=== PATIENT | male | born 1955 | race Caucasian/White ===

== ENCOUNTER 2023-02-06 10:32 | Inpatient (IN) ==
--- NOTE | 2023-02-06 10:52 | DR.N/VMALE ---
HPI Time Seen Time Seen by Provider: 02/06/23 10:52 Primary Care Physician Primary Care Physician: BERNARDO KUMAR,AUST[place] Complaints Chief Complaint Doctors Comments: 67 y/o male, became suddenly ill 4 nights ago. + frequent nausea/vomiting all night. Has been ill since. + nausea, epigastric pain. Pain is dull, does not radiate. Worse with eating, nothing makes it better. No h/o PUD in the past. Denies any bowel or bladder complaints. Saw his PCP 2 days ago, + IV fluids in the office. + generalized weakness. No fever, URI symptoms. Chief Complaint:: PT STATES THAT HE HAD A SUDDEN ONSET OF SEVERE NAUSEA WITH VOMITING THAT STARTED AROUND 11PM SATURDAY NIGHT. PT STATES THAT HE VOMITTED ALL NIGHT THAT NIGHT AND SATURDAY. N/V IS ALSO ASSOCIATED WITH INTERMITTENT EPIGASTRIC PAIN DESCRIBED PRESSURE, DECREASED APPETITE AND GENERALIZED WEAKNESS. DENIES FEVER. Self Treatment fo Chief Complaint: PT WAS SEEN BY PCP ON 02/04/23 AND WAS GIVEN 1 LITER OF IV FLUIDS AND PRESCRIBED ZOFRAN 4MG PRN WELL CIPRO 500MG PO DAILY X 5 DAYS. COVID-19 Coronavirus risk:travel/contact w/high risk person: No Has patient experienced Coronavirus symptoms: No Reviewed Nurses Notes Reviewed: Yes Source History Provided: Patient Mode of Arrival Mode of Arrival: Ambulatory Timing Onset of Chief Complaint: 02/06/23 PMH PMH Past Medical History: Yes Past Medical History: Coronary Artery Disease, Dyslipidemia, GERD and Hypertension Past Medical History Comment: PROSTATE CANCER Past Surgical History: Yes Surgical History: Angioplasty/Stents and Cholecystectomy Past Surgical History Comment: HERNIA REPAIR Family History History of Family Medical Conditions: Yes Family Medical History: Diabetes Mellitus, Cancer, [place], Coronary Artery Disease and Hypertension Social History Does patient currently use any type of tobacco product: No Have you used tobacco products in the last 12 months: No Type of Tobacco Use: None Does any household member use tobacco: No Alcohol Use: None Do you use any recreational Drugs:: No Lives With: Spouse Lives Where: Home Travel Risk Coronavirus risk:travel/contact w/high risk person: No Has patient experienced Coronavirus symptoms: No Infectious screening In the last 2 months have you had wt loss of >10#?: NO Have you had fever, night sweats or hemotysis?: No Have you traveled outside the country in the last 6 months?: No Isolation: Standard ROS Review of Systems Constitutional: Weakness Eyes: No Symptoms Reported ENTM: No Symptoms Reported Respiratoy: No Symptoms Reported Cardiovascular: No Symptoms Reported Gastrointestinal/Abdominal: See HPI Genitourinary: No Symptoms Reported Neurological: No Symptoms Reported Musculoskeletal: No Symptoms Reported Integumentary: No Symptoms Reported Psychiatric: No Symptoms Reported All Other Systems: Reviewed and Negative PE Vital Signs Vitals: Temperature 97.8 F Pulse Rate 101 Respiratory Rate 19 Blood Pressure 178/89 O2 Sat by Pulse Oximetry 96 General General Appearance: Alert and In No Apparent Distress Eyes Eye exam: PERRL and EOMI ENT ENT Exam: Mucous Membranes Moist Neck Neck Exam: Normal Inspection Respiratory Respiratory Exam: Normal Lung Sounds Bilat; negative Accessory Muscle Use or Respiratory Distress Cardiovascular Cardiovascular Exam: Regular Rate, Normal Rhythm and Normal Heart Sounds Abdominal Exam Abdominal Exam: Normal Bowel Sounds, Soft and Tenderness (epigastric region, slight guarding) Extremities Extremities Exam: Normal Inspection and Full ROM; negative Edema Neurologic Neurological Exam: Alert, Oriented X3 and CN II-XII Intact; negative Motor Sensory Deficit Skin Skin Exam: Warm and Dry COURSE Treatment Treatment: 67 y/o male with epigastric pain, N/V over 4 days. W/u initiated. 1346 - labs c/w degree of dehydration (BUN 69, Cr 2.42; no previous numbers to compare to). Lipase 2,937. Not a drinker, GB out. CT of the abd/pelvis obtained, awaiting official reading. Discussed with his covering MD, Dr Pantoja, will admit. ROR Labs Reviewed Laboratory Results Reviewed?: Yes Result Diagrams: 02/06/23 10:52 02/06/23 10:52 Laboratory: WBC 7.9 X10^3/uL (3.6-10.0) 02/06/23 10:52 RBC 6.49 X10^6/uL (4.7-6.0) H 02/06/23 10:52 Hgb 17.8 g/dL (13.5-18.0) 02/06/23 10:52 Hct 52.7 % (42.0-54.0) 02/06/23 10:52 MCV 81.2 fL (80.0-100.0) 02/06/23 10:52 MCH 27.4 pg (27.0-34.0) 02/06/23 10:52 MCHC 33.8 g/dL (33.0-35.0) 02/06/23 10:52 RDW 15.9 % (11.6-16.5) 02/06/23 10:52 Plt Count 247 X10^3/uL (150.0-450.0) 02/06/23 10:52 MPV 9.4 fL (7.4-11.0) 02/06/23 10:52 Neut % (Auto) 70.6 % (42.0-75.0) 02/06/23 10:52 Lymph % (Auto) 12.2 % (21.0-51.0) L 02/06/23 10:52 Branch % (Auto) 16.5 % (0.0-13.0) H 02/06/23 10:52 Eos % (Auto) 0.5 % (0.9-2.9) L 02/06/23 10:52 Baso % (Auto) 0.2 % (0.2-1.0) 02/06/23 10:52 Neut # (Auto) 5.6 x10^3/uL (2.2-4.8) H 02/06/23 10:52 Lymph # (Auto) 1.0 X10^3/uL (1.3-2.9) L 02/06/23 10:52 Branch # (Auto) 1.3 x10^3/uL (0.3-0.8) H 02/06/23 10:52 Eos # (Auto) 0.0 x10^3/uL (0.0-0.2) 02/06/23 10:52 Baso # (Auto) 0.0 X10^3/uL (0.0-0.1) 02/06/23 10:52 Absolute Nucleated RBC 0.1 /100WBC 02/06/23 10:52 Sodium 132 mmol/L (136-145) L 02/06/23 10:52 Corrected Sodium 136 mmol/L (136-145) 02/06/23 10:52 Potassium 4.2 mmol/L (3.5-5.1) 02/06/23 10:52 Chloride 93 mmol/L (98-107) L 02/06/23 10:52 Carbon Dioxide 31.1 mmol/L (21-32) 02/06/23 10:52 BUN 69 mg/dL (7-18) H 02/06/23 10:52 Creatinine 2.42 mg/dL (0.70-1.30) H 02/06/23 10:52 Est GFR (MDRD) Af Amer 35 (>60) L 02/06/23 10:52 Est GFR (MDRD) Non-Af 29 (>60) L 02/06/23 10:52 Glucose 246 mg/dL (65-99) H 02/06/23 10:52 Calcium 10.1 mg/dL (8.5-10.1) 02/06/23 10:52 Corrected Calcium TNP 02/06/23 10:52 Total Bilirubin 0.90 mg/dL (0.2-1.0) 02/06/23 10:52 AST 24 Units/L (15-37) 02/06/23 10:52 ALT 60 Units/L (12-78) 02/06/23 10:52 Alkaline Phosphatase 71 Units/L (46-116) 02/06/23 10:52 Troponin I High Sens 12.1 ng/L (4.0-60.0) 02/06/23 10:52 Total Protein 8.2 g/dL (6.4-8.2) 02/06/23 10:52 Albumin 4.0 g/dL (3.4-5.0) 02/06/23 10:52 Globulin 4.2 g/dL (2.5-4.5) 02/06/23 10:52 Albumin/Globulin Ratio 1.0 Ratio (1.1-2.1) L 02/06/23 10:52 Lipase 2937 Units/L (73-393) H 02/06/23 10:52 Specimen Type Clean catch urine 02/06/23 12:10 Urine Color Dark yellow (YELLOW) 02/06/23 12:10 Urine Appearance Clear (CLEAR) 02/06/23 12:10 Urine pH 5.0 (5.0 - 8.0) 02/06/23 12:10 Ur Specific [place] 1.025 (1.000-1.030) 02/06/23 12:10 Urine Protein 2+ (NEGATIVE) 02/06/23 12:10 Urine Glucose (UA) 1+ (NEGATIVE) 02/06/23 12:10 Urine Ketones Negative (NEGATIVE) 02/06/23 12:10 Urine Blood 1+ (NEGATIVE) 02/06/23 12:10 Urine Nitrite Negative (NEGATIVE) 02/06/23 12:10 Urine Bilirubin 1+ (NEGATIVE) 02/06/23 12:10 Urine Urobilinogen Normal (NORMAL) 02/06/23 12:10 Ur Leukocyte Esterase Negative (NEGATIVE) 02/06/23 12:10 Urine RBC 0-2 /HPF (0-3) 02/06/23 12:10 Urine WBC 0-2 /HPF (0-5) 02/06/23 12:10 Ur Squamous Epith Cells Rare /HPF (NEGATIVE) 02/06/23 12:10 Urine Bacteria Trace /HPF (NEGATIVE) 02/06/23 12:10 Hyaline Casts Few /LPF (NEGATIVE) 02/06/23 12:10 Urine Mucus Few /HPF (NEGATIVE) 02/06/23 12:10 Ur Culture Indicated? No/not indicated 02/06/23 12:10 Lipase 2,900 Opioid Opioid Risk Tool Age (Agustin box if 16-45): No History of Preadolescent Sexual Abuse: No Total: 0 Total Score Risk Category: Low Risk Copyright: Shaan CAMARGO predicting aberrant behaviors Discharge Plan Diagnosis Discharge Problem: Acute pancreatitis, Volume depletion, Acute kidney injury Discharge Plan Patient Disposition: 09 ADMITTED INPATIENT Condition: Stable Orders to Discharge Patient Discharge Orders: Transfer (Routine); Ordered 02/06/23 Ordered By: Damian Wilcox
[2023-02-06] MEDS ORDERED: PROTONIX INJ 40 MG VIAL IVP ONE (10:53)
[2023-02-06] MEDS ORDERED: NS 1,000 ML IV 1,000 ML IV ONE (10:53)
[2023-02-06] MEDS ORDERED: PROTONIX INJ 40 MG VIAL ONE (10:59)
[2023-02-06] MEDS ORDERED: NS 1,000 ML IV 1,000 ML ONE (10:59)
[2023-02-06 11:02] LABS: BASOPHILS % (AUTO) 0.2 % (0.2-1.0); EOSINOPHILS % (AUTO) 0.5 % (0.9-2.9); HEMATOCRIT 52.7 % (42.0-54.0); HEMOGLOBIN 17.8 g/dL (13.5-18.0); LYMPHOCYTES % (AUTO) 12.2 % (21.0-51.0); MEAN CORPUSCULAR HEMOGLOBIN 27.4 pg (27.0-34.0); MEAN CORPUSCULAR HGB CONC 33.8 g/dL (33.0-35.0); MEAN CORPUSCULAR VOLUME 81.2 fL (80.0-100.0); MEAN PLATELET VOLUME 9.4 fL (7.4-11.0); MONOCYTES # (AUTO) 1.3 x10^3/uL (0.3-0.8); MONOCYTES % (AUTO) 16.5 % (0.0-13.0); NEUTROPHILS # (AUTO) 5.6 x10^3/uL (2.2-4.8); NEUTROPHILS % (AUTO) 70.6 % (42.0-75.0); PLATELET COUNT 247 X10^3/uL (150.0-450.0); RED BLOOD COUNT 6.49 X10^6/uL (4.7-6.0); RED CELL DISTRIBUTION WIDTH 15.9 % (11.6-16.5); WHITE BLOOD COUNT 7.9 X10^3/uL (3.6-10.0)
[2023-02-06 11:13] LABS: ALANINE AMINOTRANSFERASE 60 Units/L (12-78); ALKALINE PHOSPHATASE 71 Units/L (46-116); ASPARTATE AMINO TRANSFERASE 24 Units/L (15-37); BLOOD UREA NITROGEN 69 mg/dL (7-18); CALCIUM 10.1 mg/dL (8.5-10.1); CARBON DIOXIDE 31.1 mmol/L (21-32); CHLORIDE 93 mmol/L (98-107); COR NA(FOR HYPERGLY) 136 mmol/L (136-145); CREATININE 2.42 mg/dL (0.70-1.30); GLUCOSE 246 mg/dL (65-99); POTASSIUM 4.2 mmol/L (3.5-5.1); SODIUM 132 mmol/L (136-145); TOTAL PROTEIN 8.2 g/dL (6.4-8.2); eGFR NON BLACK RACES 29 (>60)
[2023-02-06 11:24] LABS: LIPASE 2937 Units/L (73-393)
[2023-02-06 12:21] LABS: BILIRUBIN,URINE 1+ (NEGATIVE); BLOOD/HEMOGLOBIN,URINE 1+ (NEGATIVE); GLUCOSE, URINE 1+ (NEGATIVE); KETONES,URINE NEGATIVE (NEGATIVE); LEUKOCYTE ESTERASE ,URINE NEGATIVE (NEGATIVE); NITRITES,URINE NEGATIVE (NEGATIVE); PROTEIN,URINE 2+ (NEGATIVE); UROBILINOGEN,URINE NORMAL (NORMAL)
[2023-02-06 12:46] LABS: APPEARANCE,URINE CLEAR (CLEAR); COLOR,URINE DARK YELLOW (YELLOW)
[2023-02-06 12:47] LABS: BACTERIA,URINE TRACE /HPF (NEGATIVE); HYALINE CASTS, URINE FEW /LPF (NEGATIVE); RBC,URINE 0-2 /HPF (0-3); SQUAMOUS EPITHELIAL CELL,UR RARE /HPF (NEGATIVE)
--- NOTE | 2023-02-06 15:17 | CT ---
HISTORYABD PAIN, N/VSTUDYABDOMEN/PELVIS W/O CONCOMPARISONTECHNIQUEMultiple axial images of the abdomen and pelvis were obtained from the lung bases to the pubic symphysis after the administration of IV contrast. Dose reduction techniques including Automated Exposure Control (AEC) and adjustment of mA and kV were utilized.FINDINGSThe lung bases are clear without effusion. The heart size is normal. There is atherosclerosis in the LAD. There is diffuse fatty infiltration of the liver. The gallbladder has been removed. The pancreas is somewhat atrophic. The spleen and adrenal glands are normal. There is a 7 mm nonobstructing stone in the lower pole of the right kidney. There is air-fluid level in the stomach but the stomach is not abnormally dilated. The small bowel loops are abnormally dilated with air-fluid levels and diameters up to 4.8 cm in diameter. The distal small bowel is collapsed. The transition point is not defined. The appendix is normal. There is diffuse diverticulosis coli without diverticulitis. Urinary bladder wall is mildly thickened meter is prostate measures 4.3 cm in diameter. There is no worrisome bone marrow lesion.IMPRESSION1. Mid small-bowel obstruction. Transition point not identified. 2. Diverticulosis coli without diverticulitis. 3. 7 mm nonobstructing right renal stone. 4. Fatty liver.Electronically signed by: Hood Garay (February 06, 2023 15:15:47)
[2023-02-06] MEDS: D5 1/2 NS 1,000 ML 1,000 ML IV SCH ×3 (15:47→23:44)
[2023-02-06] MEDS: ZOFRAN INJ 4 MG VIAL IVP PRN (15:48)
[2023-02-06] MEDS: DILAUDID INJ IVP PRN (15:48)
[2023-02-06] MEDS ORDERED: NovoLIN R (or HumuLIN R) SC PRN (16:30)
[2023-02-06] MEDS: LOVENOX INJ 30 MG SYR SC SCH (21:35)
[2023-02-06] MEDS: LOPRESSOR TAB 25 MG PO SCH (21:35)
[2023-02-07] MEDS: D5 1/2 NS 1,000 ML 1,000 ML IV SCH ×2 (04:56→08:11)
[2023-02-07] MEDS: DILAUDID INJ IVP PRN ×3 (04:57→21:03)
[2023-02-07 06:03] LABS: BASOPHILS % (AUTO) 0.5 % (0.2-1.0); EOSINOPHILS # (AUTO) 0.1 x10^3/uL (0.0-0.2); EOSINOPHILS % (AUTO) 1.5 % (0.9-2.9); HEMATOCRIT 43.4 % (42.0-54.0); LYMPHOCYTES % (AUTO) 17.5 % (21.0-51.0); MEAN CORPUSCULAR HEMOGLOBIN 27.5 pg (27.0-34.0); MEAN CORPUSCULAR HGB CONC 34.1 g/dL (33.0-35.0); MEAN CORPUSCULAR VOLUME 80.6 fL (80.0-100.0); MEAN PLATELET VOLUME 9.7 fL (7.4-11.0); MONOCYTES # (AUTO) 1.1 x10^3/uL (0.3-0.8); MONOCYTES % (AUTO) 19.2 % (0.0-13.0); NEUTROPHILS # (AUTO) 3.6 x10^3/uL (2.2-4.8); NEUTROPHILS % (AUTO) 61.3 % (42.0-75.0); PLATELET COUNT 192 X10^3/uL (150.0-450.0); RED BLOOD COUNT 5.39 X10^6/uL (4.7-6.0); RED CELL DISTRIBUTION WIDTH 15.6 % (11.6-16.5); WHITE BLOOD COUNT 5.9 X10^3/uL (3.6-10.0)
[2023-02-07 06:14] LABS: HEMOGLOBIN 14.8 g/dL (13.5-18.0)
[2023-02-07] MEDS: AMARYL TAB 4 MG PO SCH (06:23)
[2023-02-07 06:25] LABS: CALCIUM 8.5 mg/dL (8.5-10.1); CARBON DIOXIDE 28.4 mmol/L (21-32); COR CA(FOR HYPOALB) 9.3 mg/dL (8.5-10.1); CREATININE 1.59 mg/dL (0.70-1.30); POTASSIUM 3.6 mmol/L (3.5-5.1); TOTAL PROTEIN 6.3 g/dL (6.4-8.2)
[2023-02-07] MEDS ORDERED: PLAVIX PO SCH (09:00)
[2023-02-07] MEDS: CELEXA PO SCH (09:27)
[2023-02-07] MEDS: HYZAAR 50/12.5 MG PO SCH (09:27)
[2023-02-07] MEDS: LOPRESSOR TAB 25 MG PO SCH ×2 (09:27→23:22)
[2023-02-07] MEDS: CRESTOR TAB 10 MG PO SCH (09:28)
[2023-02-07] MEDS: NS 1,000 ML IV 1,000 ML with SODIUM BICARBONATE 8.4% INJ ADULT 50 ML IV SCH ×6 (12:24→22:02)
--- NOTE | 2023-02-07 13:36 | RAD ---
HISTORYABD PAIN, SBO CAD/STENTS, HTN, PROSTATE CANCER, GB, HERNIASTUDYKUBCOMPARISONCT performed the previous dayFINDINGSEvaluation of the abdomen demonstrates persistent moderate to severe small bowel distension. No pathological soft tissue mass or calcification can be observed. The bony structures are grossly intact. Cholecystectomy clips noted.IMPRESSIONPersistent moderate to severe small bowel obstruction.Electronically signed by: ALESSIA SORIA (February 07, 2023 13:35:20)
[2023-02-07] MEDS: PROTONIX INJ 40 MG VIAL IVP SCH (14:42)
[2023-02-07] MEDS ORDERED: CHLORASEPTIC SPRAY MT PRN (16:53)
--- NOTE | 2023-02-07 18:25 | RAD ---
EXAM: ABDOMEN X-RAY (or KUB)HISTORY: Nasogastric tube verification status post placement.TECHNIQUE: Supine viewCOMPARISON: None.FINDINGS:Nasogastric tube is noted with the distal tip (pointing laterally) within the proximal to middle lateral body of the stomach.There are up to 6.1 cm dilated air-filled large bowel loops in the abdomen suspicious for high-grade bowel obstruction (versus ileus).There is no gross organomegaly, free intraperitoneal air, or suspicious calcifications seen. The visualized bony structures are within normal limits.IMPRESSION:1. Nasogastric tube is noted with the distal tip (pointing laterally) within the proximal to middle lateral body of the stomach.2. Up to 6.1 cm dilated air-filled large bowel loops in the abdomen suspicious for high-grade bowel obstruction (versus ileus).Electronically signed by: Concepción Jama (February 07, 2023 18:24:11)
[2023-02-07] MEDS ORDERED: D50W ABBOJECT SYR IV ONE (20:47)
[2023-02-07] MEDS ORDERED: D50W ABBOJECT SYR ONE (20:53)
[2023-02-07] MEDS: ZOFRAN INJ 4 MG VIAL IVP PRN (21:03)
[2023-02-07] MEDS: LOVENOX INJ 30 MG SYR SC SCH (21:03)
--- NOTE | 2023-02-07 22:30 | RAD ---
HISTORYNG TUBE PLACEMENT ADVANCED PER DR. FISHMAN Relevant Clinical InformationSTUDYKUBCOMPARISONKUB February 07, 2023 4:57 p.m.FINDINGSAn enteric tube is noted with tip overlying the expected location of the stomach. There are persistently distended bowel loops throughout the abdomen.IMPRESSIONEnteric tube tip overlies expected location of the stomach.Distended small bowel loops throughout the abdomen.Electronically signed by: Cale Doe (February 07, 2023 22:29:01)
[2023-02-08] MEDS ORDERED: NS 1,000 ML IV 1,000 ML IV ONE (00:11)
[2023-02-08] MEDS ORDERED: NS 1,000 ML IV 1,000 ML ONE (00:20)
[2023-02-08] MEDS: DILAUDID INJ IVP PRN ×9 (01:57→23:43)
[2023-02-08] MEDS ORDERED: D50W ABBOJECT SYR IV ONE ×2 (02:11→09:41)
[2023-02-08] MEDS: NS 1,000 ML IV 1,000 ML with SODIUM BICARBONATE 8.4% INJ ADULT 50 ML IV SCH ×4 (02:16→10:40)
[2023-02-08] MEDS ORDERED: NS 1,000 ML IV 0 ML ONE (04:40)
--- NOTE | 2023-02-08 05:44 | DR.CONSULT ---
CONSULT Consultation for Day of: Date: 02/07/23 Chief Complaint Chief Complaint: 67 yo male presented with abdominal pain. CT on admission and AAS today consistent with small bowel obstruction. Lipase elevated which can be seen with small bowel obstruction. Allergies Allergies Allergy/AdvReac Type Severity Reaction Status Date / Time aspirin Allergy Verified 02/06/23 10:43 Sulfa (Sulfonamide Allergy Verified 02/06/23 10:43 Antibiotics) [SULFA] History of Present Illness History of Present Illness: 67 yo male with onset 4 days prior to admission with abdominal pain with nausea and vomiting . Not passing flatus of bowel movements. CT on admission consistent with small bowel obstruction and not improved on abdominal series today. Has had laparoscopic cholecystectomy in the recent past and inguinal hernia repair in the past. Patient with significant dehydration on admission. Patietn has history of diabetes . Past Medical History Past Medical History: Coronary Artery Disease ( Hx of cornary stents in the past for chest pain, no history of [place] , on Plavix > 1 year), Dyslipidemia, GERD and Hypertension Additional Medical History: hx of prostate cancer treated with XRT and Lupron Past Surgical History Surgical History: Angioplasty/Stents and Cholecystectomy Family History Family Medical History: Diabetes Mellitus, Cancer, [place], Coronary Artery Disease and Hypertension Social History Does patient currently use any type of tobacco product: No Have you used tobacco products in the last 12 months: No Type of Tobacco Use: None Does any household member use tobacco: No Alcohol Use: None Drug Use: None Medications Home Medications: aspirin Allergy (Verified 02/06/23 10:43) Sulfa (Sulfonamide Antibiotics) [SULFA] Allergy (Verified 02/06/23 10:43) CONTINUE taking the following medications ciprofloxacin HCl 500 mg tablet 500 mg PO QDAY 02/06/23 [History] citalopram 20 mg tablet 20 mg PO QDAY 02/06/23 [History] clopidogrel 75 mg tablet 75 mg PO QDAY 02/06/23 [History] glimepiride 1 mg tablet 1 mg PO QDAY 02/06/23 [History] losartan 50 mg-hydrochlorothiazide 12.5 mg tablet 1 tab PO QDAY 02/06/23 [History] metformin 1,000 mg tablet 1,000 mg PO BID 02/06/23 [History] metoprolol tartrate 25 mg tablet 12.5 mg PO BID 02/06/23 [History] omeprazole 20 mg capsule,delayed release 20 mg PO DAILY 02/06/23 [History] ondansetron 4 mg disintegrating tablet 4 mg PO Q8H PRN 02/06/23 [History] rosuvastatin 5 mg tablet 5 mg PO QDAY 02/06/23 [History] Review of Systems Constitutional: See HPI Eyes: No Symptoms Reported ENT: No Symptoms Reported Respiratory: No Symptoms Reported Cardiovascular: No Symptoms Reported Gastrointestinal: See HPI Genitourinary: No Symptoms Reported Musculoskeletal: No Symptoms Reported Skin: No Symptoms Reported Neurological: No Symptoms Reported Physical Exam Vital Signs: Temperature 97.9 F Pulse Rate [Left] 74 Pulse Rate 92 Respiratory Rate 18 Blood Pressure [Left Arm] 140/73 Blood Pressure 153/98 O2 Sat by Pulse Oximetry 95 Oriented: Normal, Time, Person and Place Eyes: Normal Ear: Normal Nose: Normal Throat: Normal Respiratory: Clear Throughout Cardiovascular: Normal : Normal Auscultation: Bowel Sounds: Absent Palpation: Other (distended) Tenderness: Other (mildly tender throughout.) Skin: Normal Musculoskeletal: Normal Psychiatric: Normal Mood Description: Calm Affect: Normal Speech Pattern: Clear Plan (1) Small bowel obstruction: Status: Acute Plan: Over 4 days of small bowel obstruction. Will place NG tube . If not improved soon will need laparoscopy/laparotomy to relieve the obstruction. Doubt pancreatitis as lipase is often elevated with small bowel obstruction. Plus, on intitial ER evaluation at time lipase was elevated the CT shows that the gallbladder has been removed and the pancreas was atrophic and there was no evidence of pancreatic inflammation which you would see with pancreatitis . Check KUB in AM. (2) Volume depletion: Status: Acute Narrative Support Text: BUN/Creatinine improving with hydration. Will bolus on liter of IV saline and recheck BMP in AM.
[2023-02-08] MEDS: ZOFRAN INJ 4 MG VIAL IVP PRN ×2 (06:01→19:41)
[2023-02-08] MEDS: AMARYL TAB 4 MG PO SCH (06:09)
[2023-02-08 06:13] LABS: BASOPHILS % (AUTO) 0.4 % (0.2-1.0); EOSINOPHILS # (AUTO) 0.1 x10^3/uL (0.0-0.2); EOSINOPHILS % (AUTO) 1.4 % (0.9-2.9); HEMATOCRIT 40.2 % (42.0-54.0); HEMOGLOBIN 13.4 g/dL (13.5-18.0); LYMPHOCYTES # (AUTO) 0.8 X10^3/uL (1.3-2.9); LYMPHOCYTES % (AUTO) 14.8 % (21.0-51.0); MEAN CORPUSCULAR HGB CONC 33.3 g/dL (33.0-35.0); MEAN PLATELET VOLUME 9.2 fL (7.4-11.0); MONOCYTES # (AUTO) 0.9 x10^3/uL (0.3-0.8); MONOCYTES % (AUTO) 16.9 % (0.0-13.0); NEUTROPHILS # (AUTO) 3.5 x10^3/uL (2.2-4.8); NEUTROPHILS % (AUTO) 66.5 % (42.0-75.0); PLATELET COUNT 156 X10^3/uL (150.0-450.0); RED BLOOD COUNT 4.97 X10^6/uL (4.7-6.0); RED CELL DISTRIBUTION WIDTH 15.1 % (11.6-16.5); WHITE BLOOD COUNT 5.3 X10^3/uL (3.6-10.0)
[2023-02-08 06:24] LABS: ALANINE AMINOTRANSFERASE 47 Units/L (12-78); ALBUMIN 2.7 g/dL (3.4-5.0); ALKALINE PHOSPHATASE 48 Units/L (46-116); ASPARTATE AMINO TRANSFERASE 23 Units/L (15-37); BLOOD UREA NITROGEN 27 mg/dL (7-18); CALCIUM 7.9 mg/dL (8.5-10.1); CARBON DIOXIDE 33.9 mmol/L (21-32); CHLORIDE 101 mmol/L (98-107); COR CA(FOR HYPOALB) 8.9 mg/dL (8.5-10.1); CREATININE 1.26 mg/dL (0.70-1.30); GLUCOSE 78 mg/dL (65-99); POTASSIUM 3.5 mmol/L (3.5-5.1); SODIUM 137 mmol/L (136-145); TOTAL PROTEIN 5.7 g/dL (6.4-8.2); eGFR NON BLACK RACES > 60 (>60)
[2023-02-08 06:32] LABS: AMYLASE 345 Units/L (25-115); LIPASE 3080 Units/L (73-393)
--- NOTE | 2023-02-08 07:43 | RAD ---
HISTORYSmall bowel obstructionSTUDYKUBCOMPARISONCT abdomen pelvis 02/06/2023FINDINGSThere are multiple markedly dilated small bowel loops within the mid abdomen not significantly changed from prior CT. Gas is present distally within the colon. Findings are consistent with partial small bowel obstruction unchanged. No abnormal masses or abnormal calcifications are identified. Regional skeleton is osteopenic but intact.IMPRESSIONFindings compatible with partial small bowel obstruction, unchangedElectronically signed by: JUAN LUIS DE LA O (February 08, 2023 07:41:50)
[2023-02-08] MEDS: D5 NS 1,000 ML IV 1,000 ML IV SCH ×2 (10:40→21:35)
[2023-02-08] MEDS: HYZAAR 50/12.5 MG PO SCH (10:45)
[2023-02-08] MEDS: LOPRESSOR TAB 25 MG PO SCH ×2 (10:45→21:23)
[2023-02-08] MEDS: CRESTOR TAB 10 MG PO SCH (10:45)
[2023-02-08] MEDS: CELEXA PO SCH (10:45)
[2023-02-08] MEDS: PROTONIX INJ 40 MG VIAL IVP SCH (10:46)
[2023-02-08] MEDS ORDERED: POTASSIUM CHL 60 MEQ/NS 0.45% 500 ML IV PRN (11:02)
[2023-02-08] MEDS ORDERED: POTASSIUM CHLORIDE LIQ 20 MEQ UDC PO PRN (11:02)
[2023-02-08] MEDS ORDERED: K-DUR TAB 20 MEQ PO PRN (11:02)
[2023-02-08] MEDS ORDERED: KLOR-CON PO PRN (11:02)
[2023-02-08] MEDS ORDERED: POTASSIUM CHL 40 MEQ/NS 0.45% 500 ML IV PRN (11:02)
[2023-02-08] MEDS ORDERED: MICRO K EXTEN CAP 10 MEQ PO PRN (11:02)
[2023-02-08] MEDS: K-RIDER 10 MEQ/NS 100 ML 10 MEQ/100 ML BAG IV PRN ×2 (11:16→12:20)
--- NOTE | 2023-02-08 13:07 | EKG ---
Test Reason : pre-op....pt in room 208 Blood Pressure : */* mmHG Vent. Rate : 67 BPM Atrial Rate : 67 BPM P-R Int : 152 ms QRS Dur : 80 ms QT Int : 410 ms P-R-T Axes : 42 -2 18 degrees QTc Int : 433 ms Normal sinus rhythm Cannot rule out Anterior infarct , age undetermined Abnormal ECG No previous ECGs available Confirmed by Marcus Valiente ([id number]) on 02/09/2023 4:56:47 PM Referred By: Confirmed By: Marcus Valiente
[2023-02-08] MEDS ORDERED: VERSED ONE (13:32)
[2023-02-08] MEDS ORDERED: DIPRIVAN VIAL 20 ML ONE (13:33)
[2023-02-08] MEDS ORDERED: QUELICIN (OR ANECTINE) ONE (13:33)
[2023-02-08] MEDS ORDERED: ZEMURON 100 MG VIAL ONE (13:33)
[2023-02-08] MEDS ORDERED: FENTANYL VIAL INJ 250 mcg ONE (13:33)
[2023-02-08] MEDS ORDERED: LR 1,000 ML IV 1,000 ML IV ONE (13:33)
[2023-02-08] MEDS ORDERED: ANCEF VIAL 1 GRAM ONE (13:34)
[2023-02-08] MEDS ORDERED: NS 100 ML IV 100 ML ONE (13:38)
[2023-02-08] MEDS ORDERED: SUPRANE ONE (13:45)
[2023-02-08] MEDS ORDERED: BRIDION ONE (14:36)
[2023-02-08] MEDS ORDERED: NAROPIN 0.75% EPI ONE (14:41)
[2023-02-08] MEDS ORDERED: DECADRON INJ ONE (14:45)
--- NOTE | 2023-02-08 14:52 | OR.IMMED ---
IMMEDIATE POST-OP NOTE Immediate Post-Op Note Pre-Op Diagnosis: small bowel obstruction Post-Op Diagnosis: same secondary to adhesions Procedure: laparotomy and lysis of adhesions, appendectomy Description of Procedure: see operative summary Surgeon/Cook Dinner: Topher Findings: SBO with adhesions distal small bowel Specimens Removed: appendix Estimated Blood Loss: < 50cc Complications: none Progress Notes: to floor, Continue eddy and NG tube Final Diagnosis: as above
[2023-02-08] MEDS ORDERED: BARHEMSYS INJ IVP PRN (15:14)
[2023-02-08] MEDS ORDERED: BENADRYL INJ 50 MG VIAL IVP PRN (15:14)
[2023-02-08] MEDS ORDERED: ZOFRAN INJ 4 MG VIAL IVP PRN (15:14)
[2023-02-08] MEDS ORDERED: REGLAN INJ 10 MG VIAL IVP PRN (15:14)
[2023-02-08] MEDS ORDERED: DILAUDID INJ ONE (15:31)
--- NOTE | 2023-02-08 22:40 | DR.H&P ---
H&P - History & Physical for Day of: H&P Date: 02/06/23 - Chief Complaint Chief Complaint: NAUSEA, VOMITING, EPIGASTRIC PAIN - History of Present Illness History of Present Illness: IS A 67 YEAR OLD PATIENT OF OURS. HE PRESENTED TO THE ER WITH COMPLAINTS OF FREQUENT NAUSEA, VOMITING, AND EPIGASTRIC PAIN. HE DESCRIBES PAIN DULL AND INTERMITTENT. PAIN DOES NOT RADIATE. IT IS WORSE WITH EATING AND NOTHING MAKES IT BETTER. HE RATES PAIN A 6/10. HE REPORTS THAT PAIN STARTED AT APPROXIMATELY 11PM ON SATURDAY NIGHT. ASSOCIATED SYMPTOMS INCLUDE DECREASED APPETITE AND GENERALIZED WEAKNESS. HE WAS SEEN IN OUR OFFICE ON 02/04/23 AND WAS GIVEN A NORMAL SALINE BOLUS AND WAS PRESCRIBED ZOFRAN PRN AND CIPRO 500MG BID X 5 DAYS. HE HAS A PMH OF CAD, DYSLIPIDEMIA, GERD, HTN, PROSTATE CANCER, HERNIA REPAIR, CHOLECYSTECTOMY, AND CARDIAC STENTS. ON ARRIVAL TO THE ER, HIS VITALS WERE: 97.8-119-18-97%-112/72. LABS WERE OBTAINED. WBC 7.9, RBC 6.49, HGB 17.8, HCT 52.7, PLT COUNT 247, SODIUM 132, POTASSIUM 4.2, CHLORIDE 93, BUN 69, CREATININE 2.42, GFR 29, GLUCOSE 246, TOTAL BILI 0.90, AST 24, ALT 60, ALK PHOS 71, TROPONIN 12.1, TOTAL PROTEIN 8.2, ALBUMIN 4.0, LIPASE 2937. A URINALYSIS WAS OBTAINED AND REVEALED: WBC 0-2, RBC 0-2, LEUKOCYTES NEGATIVE, BACTERIA TRACE, BLOOD 1+, PROTEIN 2+. AN ABDOMEN/PELVIS CT WITHOUT CONTRAST WAS OBTAINED AND REVEALED: 1. Mid small-bowel obstruction. Transition point not identified. 2. Diverticulosis coli without diverticulitis. 3. 7 mm nonobstructing right renal stone. 4. Fatty liver. IN THE ER, HE WAS GIVEN A NORMAL SALINE BOLUS, PROTONIX 40MG IV X 1. HE WAS ADMITTED TO THE HOSPITAL OBSERVATION STATUS FOR FURTHER EVALUATION AND TREATMENT OF SMALL BOWEL OBSTRUCTION, ACUTE PANCREATITIS, ACUTE RENAL INJURY, DEHYDRATION, HYPONATREMIA. HE WAS STARTED ON D51/2 NORMAL SALINE AT 150 ML/HR, DILAUDID 1MG IV Q4H PRN, LOVENOX 30MG SC HS, OTBS ACHS, HUMULIN R SLIDING SCALE, ZOFRAN 4MG IV Q6H PRN, PROTONIX 40MG IV DAILY. WE WILL RESUME HIS HOME MEDICATIONS OF CELEXA, AMARYL, HYZAAR, GLUCOPHAGE, LOPRESSOR, AND CRESTOR. WE WILL CONSULT , GENERAL SURGEON. OTHERWISE, WE PLAN TO FOLLOW-UP WITH AM LABS AND CONTINUE TO MONITOR. TIME SPENT ON CLINICAL ASSESSMENT, REVIEWING LABS AND IMAGING, DECISION MAKING, AND DOCUMENTATION GREATER THAN 75 MINUTES. - Past Medical History Past Medical History: Coronary Artery Disease (Hx of cornary stents in the past for chest pain, no history of [place] , on Plavix > 1 year), Hypertension, Dyslipidemia, GERD Additional Medical History: hx of prostate cancer treated with XRT and Lupron - Past Surgical History Surgical History: Angioplasty/Stents, Cholecystectomy - Family History Family Medical History: Diabetes Mellitus, Cancer, [place], Coronary Artery Disease, Hypertension - Social History Does patient currently use any type of tobacco product: No Have you used tobacco products in the last 12 months: No Type of Tobacco Use: None Does any household member use tobacco: No Alcohol Use: None Drug Use: None - Medications Home Medications: aspirin Allergy (Verified 02/06/23 10:43) Sulfa (Sulfonamide Antibiotics) [SULFA] Allergy (Verified 02/06/23 10:43) CONTINUE taking the following medications ciprofloxacin HCl 500 mg tablet 500 mg PO QDAY 02/06/23 [History] citalopram 20 mg tablet 20 mg PO QDAY 02/06/23 [History] clopidogrel 75 mg tablet 75 mg PO QDAY 02/06/23 [History] glimepiride 1 mg tablet 1 mg PO QDAY 02/06/23 [History] losartan 50 mg-hydrochlorothiazide 12.5 mg tablet 1 tab PO QDAY 02/06/23 [History] metformin 1,000 mg tablet 1,000 mg PO BID 02/06/23 [History] metoprolol tartrate 25 mg tablet 12.5 mg PO BID 02/06/23 [History] omeprazole 20 mg capsule,delayed release 20 mg PO DAILY 02/06/23 [History] ondansetron 4 mg disintegrating tablet 4 mg PO Q8H PRN 02/06/23 [History] rosuvastatin 5 mg tablet 5 mg PO QDAY 02/06/23 [History] - Review of Systems Constitutional: Weakness Eyes: No Symptoms Reported ENT: No Symptoms Reported Respiratory: No Symptoms Reported Cardiovascular: No Symptoms Reported Gastrointestinal: See HPI, Nausea, Vomiting, Abdominal Pain Genitourinary: No Symptoms Reported Musculoskeletal: No Symptoms Reported Skin: No Symptoms Reported Neurological: Weakness - Physical Exam Vital Signs: Temperature 98.5 F Pulse Rate [Left] 77 Pulse Rate 79 Respiratory Rate 18 Blood Pressure [Left Arm] 152/78 Blood Pressure 147/72 O2 Sat by Pulse Oximetry 97 Oriented: Normal, Time, Person, Place Eyes: Normal Ear: Normal Nose: Normal Throat: Normal Respiratory: Diminished Throughout Cardiovascular: Tachycardia : Normal Auscultation: Bowel Sounds: Normal Palpation: Normal Tenderness: Epigastric Skin: Decreased Turgur Musculoskeletal: Normal Psychiatric: Normal Mood Description: Calm Affect: Normal Speech Pattern: Clear - Assessment/Plan (1) Small bowel obstruction Status: Acute Plan: ADMIT, SURGICAL CONSULT, D51/2 NORMAL SALINE AT 150 ML/HR, DILAUDID 1MG IV Q4H PRN, LOVENOX 30MG SC HS, OTBS ACHS, HUMULIN R SLIDING SCALE, ZOFRAN 4MG IV Q6H PRN, PROTONIX 40MG IV DAILY. RESUME HOME MEDS (2) Acute pancreatitis Qualifiers: Pancreatitis type: unspecified pancreatitis type Acute pancreatitis complication: unspecified Qualified Code(s): K85.90 - Acute pancreatitis without necrosis or infection, unspecified Status: Acute (3) Acute kidney injury Status: Acute (4) Dehydration Status: Acute (5) Hyponatremia Status: Acute (6) HTN (hypertension) Qualifiers: Hypertension type: primary hypertension Qualified Code(s): I10 - Essential (primary) hypertension Status: Chronic (7) DM II (diabetes mellitus, type II), controlled Qualifiers: Diabetes mellitus ocean transportation intermediary insulin use: with halfway use Diabetes mellitus complication status: with hyperglycemia Qualified Code(s): E11.65 - Type 2 diabetes mellitus with hyperglycemia; Z79.4 - terminal operations supervisor (current) use of insulin Status: Chronic (8) GERD (gastroesophageal reflux disease) Qualifiers: Esophagitis presence: esophagitis presence not specified Qualified Code(s): K21.9 - Gastro-esophageal reflux disease without esophagitis Status: Chronic (9) CAD (coronary artery disease) Qualifiers: Coronary Disease-Associated Artery/Lesion type: [place] artery [place] vs. transplanted heart: [place] heart Status: Chronic (10) Dyslipidemia Status: Chronic - Allergies Allergies/Adverse Reactions: Allergies Allergy/AdvReac Type Severity Reaction Status Date / Time aspirin Allergy Verified 02/06/23 10:43 Sulfa (Sulfonamide Allergy Verified 02/06/23 10:43 Antibiotics) [SULFA]
[2023-02-09] MEDS: ZOFRAN INJ 4 MG VIAL IVP PRN (02:46)
[2023-02-09] MEDS: DILAUDID INJ IVP PRN ×8 (02:47→23:14)
--- NOTE | 2023-02-09 05:17 | RAD ---
HISTORYPANCREATITIS, ABD PAIN, NG TUBE ; HX: CAD, HTN, PROSTATE CANCER SX: STENTS, [id number]/05/2023 FINDINGSEvaluation of the abdomen demonstrates a nonobstructive bowel gas pattern. There are skin danette in the midline from recent abdominal surgery. Nasogastric tube present within the distal stomach.. No pathological soft tissue mass or calcification can be observed. The bony structures are grossly intact.IMPRESSIONNG tube tip in distal stomach.Electronically signed by: Leander Nascimento (February 09, 2023 05:15:42)
[2023-02-09 05:59] LABS: BASOPHILS % (AUTO) 0.1 % (0.2-1.0); EOSINOPHILS % (AUTO) 0.1 % (0.9-2.9); HEMATOCRIT 43.6 % (42.0-54.0); HEMOGLOBIN 14.6 g/dL (13.5-18.0); LYMPHOCYTES # (AUTO) 0.6 X10^3/uL (1.3-2.9); LYMPHOCYTES % (AUTO) 8.6 % (21.0-51.0); MEAN CORPUSCULAR HEMOGLOBIN 27.1 pg (27.0-34.0); MEAN CORPUSCULAR HGB CONC 33.5 g/dL (33.0-35.0); MEAN CORPUSCULAR VOLUME 80.9 fL (80.0-100.0); MEAN PLATELET VOLUME 9.3 fL (7.4-11.0); MONOCYTES % (AUTO) 14.1 % (0.0-13.0); NEUTROPHILS # (AUTO) 5.3 x10^3/uL (2.2-4.8); NEUTROPHILS % (AUTO) 77.1 % (42.0-75.0); PLATELET COUNT 173 X10^3/uL (150.0-450.0); RED BLOOD COUNT 5.39 X10^6/uL (4.7-6.0); RED CELL DISTRIBUTION WIDTH 15.1 % (11.6-16.5); WHITE BLOOD COUNT 6.8 X10^3/uL (3.6-10.0)
[2023-02-09 06:02] LABS: ALANINE AMINOTRANSFERASE 39 Units/L (12-78); ALBUMIN 2.6 g/dL (3.4-5.0); ALKALINE PHOSPHATASE 51 Units/L (46-116); ASPARTATE AMINO TRANSFERASE 21 Units/L (15-37); BLOOD UREA NITROGEN 21 mg/dL (7-18); CALCIUM 8.1 mg/dL (8.5-10.1); CHLORIDE 102 mmol/L (98-107); COR CA(FOR HYPOALB) 9.2 mg/dL (8.5-10.1); COR NA(FOR HYPERGLY) 140 mmol/L (136-145); CREATININE 1.42 mg/dL (0.70-1.30); GLUCOSE 197 mg/dL (65-99); SODIUM 138 mmol/L (136-145); eGFR NON BLACK RACES 53 (>60)
[2023-02-09] MEDS: D5 NS 1,000 ML IV 1,000 ML IV SCH ×3 (06:02→20:10)
[2023-02-09] MEDS: PROTONIX INJ 40 MG VIAL IVP SCH (08:46)
[2023-02-09] MEDS: CRESTOR TAB 10 MG PO SCH (08:50)
[2023-02-09] MEDS: HYZAAR 50/12.5 MG PO SCH ×2 (08:51→12:42)
[2023-02-09] MEDS: LOPRESSOR TAB 25 MG PO SCH ×3 (08:51→20:10)
--- NOTE | 2023-02-09 11:11 | PCM.PROG ---
Progress Note Progress Note for Day of Date of Exam: 02/09/23 Subjective Subjective: Patient seen at bedside, no events overnight. He was admitted for abdominal pain and found to have partial SBO. His sx were not improving, surgery consulted. He underwent lysis of adhesions and appendectomy yesterday. He currently has NGT placed. He reports feeling better. His post-op pain is controlled with pain medicines. He has not had a BM or passing gas. Labs/imaging reviewed KUB: non-obstructive gas pattern, NGT in distal stomach Plan: Follow surgery recommendations, continue NGT. Continue hydration and pain control. Replace electrolytes as needed. Continue insulin. Keep NPO status. Monitor AM labs/imaging. Past Medical Family Social History Allergies: Allergies aspirin Allergy (Verified 02/06/23 10:43) Sulfa (Sulfonamide Antibiotics) [SULFA] Allergy (Verified 02/06/23 10:43) Vital Signs and I&O's Vital Signs: Temperature 98.2 F Pulse Rate [Left] 65 Pulse Rate 79 Respiratory Rate 18 Blood Pressure [Left Arm] 176/80 Blood Pressure 147/72 O2 Sat by Pulse Oximetry 98 Intake and Output: Intake & Output 02/06/23 02/07/23 02/08/23 02/09/23 23:59 23:59 23:59 23:59 Intake Total 1913 2978 / 2978 5609 / 5609 622 / 622 Output Total 550 / 550 4425 / 4425 1050 / 1050 Balance 1913 2428 / 2428 1184 / 1184 -428 / -428 Physical Exam Oriented: Normal, Time, Person and Place Eyes: Normal Ear: Normal Nose: Normal Throat: Normal Respiratory: Normal Cardiovascular: Normal Auscultation: Bowel Sounds: Decreased Tenderness: Epigastric (dressing intact ) Skin: Decreased Turgur Musculoskeletal: Normal Psychiatric: Normal Mood Description: Calm Affect: Normal Speech Pattern: Clear and Appropriate Laboratory and Diagnostics Result Diagrams: 02/09/23 05:20 02/09/23 05:20 Labs: 02/08/23 14:15 Peritoneal Fluid Wound Gram Stain - Final Laboratory WBC 6.8 X10^3/uL (3.6-10.0) 02/09/23 05:20 RBC 5.39 X10^6/uL (4.7-6.0) 02/09/23 05:20 Hgb 14.6 g/dL (13.5-18.0) 02/09/23 05:20 Hct 43.6 % (42.0-54.0) 02/09/23 05:20 MCV 80.9 fL (80.0-100.0) 02/09/23 05:20 MCH 27.1 pg (27.0-34.0) 02/09/23 05:20 MCHC 33.5 g/dL (33.0-35.0) 02/09/23 05:20 RDW 15.1 % (11.6-16.5) 02/09/23 05:20 Plt Count 173 X10^3/uL (150.0-450.0) 02/09/23 05:20 MPV 9.3 fL (7.4-11.0) 02/09/23 05:20 Neut % (Auto) 77.1 % (42.0-75.0) H 02/09/23 05:20 Lymph % (Auto) 8.6 % (21.0-51.0) L 02/09/23 05:20 [place] % (Auto) 14.1 % (0.0-13.0) H 02/09/23 05:20 Eos % (Auto) 0.1 % (0.9-2.9) L 02/09/23 05:20 Baso % (Auto) 0.1 % (0.2-1.0) L 02/09/23 05:20 Neut # (Auto) 5.3 x10^3/uL (2.2-4.8) H 02/09/23 05:20 Lymph # (Auto) 0.6 X10^3/uL (1.3-2.9) L 02/09/23 05:20 [place] # (Auto) 1.0 x10^3/uL (0.3-0.8) H 02/09/23 05:20 Eos # (Auto) 0.0 x10^3/uL (0.0-0.2) 02/09/23 05:20 Baso # (Auto) 0.0 X10^3/uL (0.0-0.1) 02/09/23 05:20 Absolute Nucleated RBC 0.0 /100WBC 02/09/23 05:20 Sodium 138 mmol/L (136-145) 02/09/23 05:20 Corrected Sodium 140 mmol/L (136-145) 02/09/23 05:20 Potassium 5.0 mmol/L (3.5-5.1) 02/09/23 05:20 Chloride 102 mmol/L (98-107) 02/09/23 05:20 Carbon Dioxide 31.0 mmol/L (21-32) 02/09/23 05:20 BUN 21 mg/dL (7-18) H 02/09/23 05:20 Creatinine 1.42 mg/dL (0.70-1.30) H 02/09/23 05:20 Est GFR (MDRD) Af Amer > 60 (>60) 02/09/23 05:20 Est GFR (MDRD) Non-Af 53 (>60) L 02/09/23 05:20 Glucose 197 mg/dL (65-99) H 02/09/23 05:20 POC Glucose (mg/dL) 187 mg/dL (65-99) H 02/09/23 05:33 Calcium 8.1 mg/dL (8.5-10.1) L 02/09/23 05:20 Corrected Calcium 9.2 mg/dL (8.5-10.1) 02/09/23 05:20 Total Bilirubin 0.60 mg/dL (0.2-1.0) 02/09/23 05:20 AST 21 Units/L (15-37) 02/09/23 05:20 ALT 39 Units/L (12-78) 02/09/23 05:20 Alkaline Phosphatase 51 Units/L (46-116) 02/09/23 05:20 Troponin I High Sens 12.1 ng/L (4.0-60.0) 02/06/23 10:52 Total Protein 6.0 g/dL (6.4-8.2) L 02/09/23 05:20 Albumin 2.6 g/dL (3.4-5.0) L 02/09/23 05:20 Globulin 3.4 g/dL (2.5-4.5) 02/09/23 05:20 Albumin/Globulin Ratio 0.8 Ratio (1.1-2.1) L 02/09/23 05:20 Amylase 345 Units/L (25-115) H 02/08/23 05:27 Lipase 3080 Units/L (73-393) H 02/08/23 05:27 Specimen Type Clean catch urine 02/06/23 12:10 Urine Color Dark yellow (YELLOW) 02/06/23 12:10 Urine Appearance Clear (CLEAR) 02/06/23 12:10 Urine pH 5.0 (5.0 - 8.0) 02/06/23 12:10 Ur Specific [place] 1.025 (1.000-1.030) 02/06/23 12:10 Urine Protein 2+ (NEGATIVE) 02/06/23 12:10 Urine Glucose (UA) 1+ (NEGATIVE) 02/06/23 12:10 Urine Ketones Negative (NEGATIVE) 02/06/23 12:10 Urine Blood 1+ (NEGATIVE) 02/06/23 12:10 Urine Nitrite Negative (NEGATIVE) 02/06/23 12:10 Urine Bilirubin 1+ (NEGATIVE) 02/06/23 12:10 Urine Urobilinogen Normal (NORMAL) 02/06/23 12:10 Ur Leukocyte Esterase Negative (NEGATIVE) 02/06/23 12:10 Urine RBC 0-2 /HPF (0-3) 02/06/23 12:10 Urine WBC 0-2 /HPF (0-5) 02/06/23 12:10 Ur Squamous Epith Cells Rare /HPF (NEGATIVE) 02/06/23 12:10 Urine Bacteria Trace /HPF (NEGATIVE) 02/06/23 12:10 Hyaline Casts Few /LPF (NEGATIVE) 02/06/23 12:10 Urine Mucus Few /HPF (NEGATIVE) 02/06/23 12:10 Ur Culture Indicated? No/not indicated 02/06/23 12:10 Plan (1) Small bowel obstruction: Status: Acute (2) Acute pancreatitis: Status: Acute Qualifiers: Acute pancreatitis complication: unspecified Pancreatitis type: unspecified pancreatitis type Qualified Code(s): K85.90 - Acute pancreatitis without necrosis or infection, unspecified (3) Acute kidney injury: Status: Acute (4) Dehydration: Status: Acute (5) Hyponatremia: Status: Acute (6) HTN (hypertension): Status: Chronic Qualifiers: Hypertension type: primary hypertension Qualified Code(s): I10 - Essential (primary) hypertension (7) DM II (diabetes mellitus, type II), controlled: Status: Chronic Qualifiers: Diabetes mellitus complication status: with hyperglycemia Diabetes mellitus intermediate insulin use: with intermediate use Qualified Code(s): E11.65 - Type 2 diabetes mellitus with hyperglycemia; Z79.4 - terminal superintendent (current) use of insulin (8) GERD (gastroesophageal reflux disease): Status: Chronic Qualifiers: Esophagitis presence: esophagitis presence not specified Qualified Code(s): K21.9 - Gastro-esophageal reflux disease without esophagitis (9) CAD (coronary artery disease): Status: Chronic Qualifiers: Coronary Disease-Associated Artery/Lesion type: hab[place] artery [place] vs. transplanted heart: habematolel heart (10) Dyslipidemia: Status: Chronic
--- NOTE | 2023-02-09 23:40 | NOTE.SOAP ---
Soap Note Note for Day of Date of Exam: 02/09/23 Subjective Data Subjective Data: POD 1 after lysis of adhesions to resolve small bowel obstruction. Doing well. NG output slowing down. No flatus of BM yet. Objective Data Temperature: 97.8 F Pulse Rate: 64 Respiratory Rate: 18 Blood Pressure: 154/75 O2 Sat by Pulse Oximetry: 96 Objective Data: Abdomen less distended. Incision clean and dry. Hgb=14.6,CR=1.42, WBS=6.8 Assessment Assessment: POD # 1 after resolution SBO Plan Plan: Continue Carter and NG tube.
[2023-02-10] MEDS: DILAUDID INJ IVP PRN ×4 (04:12→23:18)
[2023-02-10 05:35] LABS: BASOPHILS % (AUTO) 0.2 % (0.2-1.0); EOSINOPHILS # (AUTO) 0.1 x10^3/uL (0.0-0.2); EOSINOPHILS % (AUTO) 1.3 % (0.9-2.9); HEMATOCRIT 41.8 % (42.0-54.0); HEMOGLOBIN 13.6 g/dL (13.5-18.0); LYMPHOCYTES # (AUTO) 0.6 X10^3/uL (1.3-2.9); LYMPHOCYTES % (AUTO) 10.9 % (21.0-51.0); MEAN CORPUSCULAR HEMOGLOBIN 26.7 pg (27.0-34.0); MEAN CORPUSCULAR HGB CONC 32.6 g/dL (33.0-35.0); MEAN CORPUSCULAR VOLUME 81.9 fL (80.0-100.0); MEAN PLATELET VOLUME 9.5 fL (7.4-11.0); MONOCYTES # (AUTO) 0.8 x10^3/uL (0.3-0.8); MONOCYTES % (AUTO) 14.9 % (0.0-13.0); NEUTROPHILS # (AUTO) 3.9 x10^3/uL (2.2-4.8); NEUTROPHILS % (AUTO) 72.7 % (42.0-75.0); PLATELET COUNT 167 X10^3/uL (150.0-450.0); RED CELL DISTRIBUTION WIDTH 15.5 % (11.6-16.5); WHITE BLOOD COUNT 5.4 X10^3/uL (3.6-10.0)
[2023-02-10 05:47] LABS: ALANINE AMINOTRANSFERASE 39 Units/L (12-78); ALBUMIN 2.4 g/dL (3.4-5.0); ALKALINE PHOSPHATASE 51 Units/L (46-116); ASPARTATE AMINO TRANSFERASE 24 Units/L (15-37); BLOOD UREA NITROGEN 19 mg/dL (7-18); CALCIUM 8.4 mg/dL (8.5-10.1); CARBON DIOXIDE 32.3 mmol/L (21-32); CHLORIDE 104 mmol/L (98-107); COR CA(FOR HYPOALB) 9.7 mg/dL (8.5-10.1); COR NA(FOR HYPERGLY) 139 mmol/L (136-145); CREATININE 1.31 mg/dL (0.70-1.30); GLUCOSE 157 mg/dL (65-99); POTASSIUM 4.9 mmol/L (3.5-5.1); SODIUM 138 mmol/L (136-145); TOTAL PROTEIN 5.9 g/dL (6.4-8.2); eGFR NON BLACK RACES 58 (>60)
--- NOTE | 2023-02-10 07:19 | RAD ---
HISTORYPANCREATITIS, ABD PAIN, NG [id number]/06/2023, 02/08/2023 and 02/07/2023.FINDINGSEvaluation of the abdomen demonstrates multiple gas-filled loops of small bowel throughout the abdomen with tip of suspected gastric tube projecting over the region of the distal stomach. Midline suture danette are present. The bony structures are grossly unremarkable.IMPRESSIONInterval development of gas-filled loops of small bowel throughout the abdomen following surgery which is new compared with the previous day and is not dissimilar to comparison pre-surgical radiograph performed on 02/08/2023. Findings may reflect postoperative ileus, however, small-bowel obstruction is not excluded and continued follow-up is recommended.Electronically signed by: RAMIN MEDEL (February 10, 2023 07:18:05)
[2023-02-10] MEDS: HYZAAR 50/12.5 MG PO SCH (09:23)
[2023-02-10] MEDS: LOPRESSOR TAB 25 MG PO SCH ×2 (09:23→20:26)
[2023-02-10] MEDS: CRESTOR TAB 10 MG PO SCH (10:12)
[2023-02-10] MEDS: PROTONIX INJ 40 MG VIAL IVP SCH (10:12)
--- NOTE | 2023-02-10 10:48 | PCM.PROG ---
Progress Note Progress Note for Day of Date of Exam: 02/10/23 Subjective Subjective: Patient seen at bedside, no events overnight. He was admitted for abdominal pain and found to have partial SBO. POD#2, he underwent lysis of adhesions and appendectomy. He currently has NGT placed.His post-op pain is controlled with pain medicines. He has not had a BM or passing gas. He has been having a lot of output from the NG. Labs/imaging reviewed KUB: concerning for post-op ileus or SBO. Plan: Follow surgery recommendations, continue NGT. Continue hydration and pain control. Replace electrolytes as needed. Continue insulin. Keep NPO status. Monitor AM labs/imaging. Past Medical Family Social History Allergies: Allergies aspirin Allergy (Verified 02/06/23 10:43) Sulfa (Sulfonamide Antibiotics) [SULFA] Allergy (Verified 02/06/23 10:43) Vital Signs and I&O's Vital Signs: Temperature 98.3 F Pulse Rate [Left] 66 Pulse Rate 64 Respiratory Rate 20 Blood Pressure [Left Arm] 184/79 Blood Pressure 154/75 O2 Sat by Pulse Oximetry 94 Intake and Output: Intake & Output 02/07/23 02/08/23 02/09/23 02/10/23 23:59 23:59 23:59 23:59 Intake Total 2978 / 2978 5609 / 5609 1673 / 2313 1140 / 1140 Output Total 550 / 550 4425 / 4425 2050 / 2050 400 / 400 Balance 2428 / 2428 1184 / 1184 -377 / 263 740 / 740 Physical Exam Oriented: Normal, Time, Person and Place Eyes: Normal Ear: Normal Nose: Normal Throat: Normal Respiratory: Normal Cardiovascular: Normal Auscultation: Bowel Sounds: Decreased Tenderness: Epigastric (dressing intact ) Skin: Decreased Turgur Musculoskeletal: Normal Psychiatric: Normal Mood Description: Calm Affect: Normal Speech Pattern: Clear and Appropriate Laboratory and Diagnostics Result Diagrams: 02/10/23 05:05 02/10/23 05:05 Labs: 02/08/23 14:15 Peritoneal Fluid Wound Gram Stain - Final 02/08/23 14:15 Peritoneal Fluid Wound Culture - Preliminary Laboratory WBC 5.4 X10^3/uL (3.6-10.0) 02/10/23 05:05 RBC 5.10 X10^6/uL (4.7-6.0) 02/10/23 05:05 Hgb 13.6 g/dL (13.5-18.0) 02/10/23 05:05 Hct 41.8 % (42.0-54.0) L 02/10/23 05:05 MCV 81.9 fL (80.0-100.0) 02/10/23 05:05 MCH 26.7 pg (27.0-34.0) L 02/10/23 05:05 MCHC 32.6 g/dL (33.0-35.0) L 02/10/23 05:05 RDW 15.5 % (11.6-16.5) 02/10/23 05:05 Plt Count 167 X10^3/uL (150.0-450.0) 02/10/23 05:05 MPV 9.5 fL (7.4-11.0) 02/10/23 05:05 Neut % (Auto) 72.7 % (42.0-75.0) 02/10/23 05:05 Lymph % (Auto) 10.9 % (21.0-51.0) L 02/10/23 05:05 [place] % (Auto) 14.9 % (0.0-13.0) H 02/10/23 05:05 Eos % (Auto) 1.3 % (0.9-2.9) 02/10/23 05:05 Baso % (Auto) 0.2 % (0.2-1.0) 02/10/23 05:05 Neut # (Auto) 3.9 x10^3/uL (2.2-4.8) 02/10/23 05:05 Lymph # (Auto) 0.6 X10^3/uL (1.3-2.9) L 02/10/23 05:05 [place] # (Auto) 0.8 x10^3/uL (0.3-0.8) 02/10/23 05:05 Eos # (Auto) 0.1 x10^3/uL (0.0-0.2) 02/10/23 05:05 Baso # (Auto) 0.0 X10^3/uL (0.0-0.1) 02/10/23 05:05 Absolute Nucleated RBC 0.0 /100WBC 02/10/23 05:05 Sodium 138 mmol/L (136-145) 02/10/23 05:05 Corrected Sodium 139 mmol/L (136-145) 02/10/23 05:05 Potassium 4.9 mmol/L (3.5-5.1) 02/10/23 05:05 Chloride 104 mmol/L (98-107) 02/10/23 05:05 Carbon Dioxide 32.3 mmol/L (21-32) H 02/10/23 05:05 BUN 19 mg/dL (7-18) H 02/10/23 05:05 Creatinine 1.31 mg/dL (0.70-1.30) H 02/10/23 05:05 Est GFR (MDRD) Af Amer > 60 (>60) 02/10/23 05:05 Est GFR (MDRD) Non-Af 58 (>60) L 02/10/23 05:05 Glucose 157 mg/dL (65-99) H 02/10/23 05:05 POC Glucose (mg/dL) 147 mg/dL (65-99) H 02/10/23 05:37 Calcium 8.4 mg/dL (8.5-10.1) L 02/10/23 05:05 Corrected Calcium 9.7 mg/dL (8.5-10.1) 02/10/23 05:05 Total Bilirubin 0.90 mg/dL (0.2-1.0) 02/10/23 05:05 AST 24 Units/L (15-37) 02/10/23 05:05 ALT 39 Units/L (12-78) 02/10/23 05:05 Alkaline Phosphatase 51 Units/L (46-116) 02/10/23 05:05 Troponin I High Sens 12.1 ng/L (4.0-60.0) 02/06/23 10:52 Total Protein 5.9 g/dL (6.4-8.2) L 02/10/23 05:05 Albumin 2.4 g/dL (3.4-5.0) L 02/10/23 05:05 Globulin 3.5 g/dL (2.5-4.5) 02/10/23 05:05 Albumin/Globulin Ratio 0.7 Ratio (1.1-2.1) L 02/10/23 05:05 Amylase 345 Units/L (25-115) H 02/08/23 05:27 Lipase 3080 Units/L (73-393) H 02/08/23 05:27 Specimen Type Clean catch urine 02/06/23 12:10 Urine Color Dark yellow (YELLOW) 02/06/23 12:10 Urine Appearance Clear (CLEAR) 02/06/23 12:10 Urine pH 5.0 (5.0 - 8.0) 02/06/23 12:10 Ur Specific [place] 1.025 (1.000-1.030) 02/06/23 12:10 Urine Protein 2+ (NEGATIVE) 02/06/23 12:10 Urine Glucose (UA) 1+ (NEGATIVE) 02/06/23 12:10 Urine Ketones Negative (NEGATIVE) 02/06/23 12:10 Urine Blood 1+ (NEGATIVE) 02/06/23 12:10 Urine Nitrite Negative (NEGATIVE) 02/06/23 12:10 Urine Bilirubin 1+ (NEGATIVE) 02/06/23 12:10 Urine Urobilinogen Normal (NORMAL) 02/06/23 12:10 Ur Leukocyte Esterase Negative (NEGATIVE) 02/06/23 12:10 Urine RBC 0-2 /HPF (0-3) 02/06/23 12:10 Urine WBC 0-2 /HPF (0-5) 02/06/23 12:10 Ur Squamous Epith Cells Rare /HPF (NEGATIVE) 02/06/23 12:10 Urine Bacteria Trace /HPF (NEGATIVE) 02/06/23 12:10 Hyaline Casts Few /LPF (NEGATIVE) 02/06/23 12:10 Urine Mucus Few /HPF (NEGATIVE) 02/06/23 12:10 Ur Culture Indicated? No/not indicated 02/06/23 12:10 Plan (1) Small bowel obstruction: Status: Acute (2) Acute pancreatitis: Status: Acute Qualifiers: Acute pancreatitis complication: unspecified Pancreatitis type: unspecified pancreatitis type Qualified Code(s): K85.90 - Acute pancreatitis without necrosis or infection, unspecified (3) Acute kidney injury: Status: Acute (4) Dehydration: Status: Acute (5) Hyponatremia: Status: Acute (6) HTN (hypertension): Status: Chronic Qualifiers: Hypertension type: primary hypertension Qualified Code(s): I10 - Essential (primary) hypertension (7) DM II (diabetes mellitus, type II), controlled: Status: Chronic Qualifiers: Diabetes mellitus complication status: with hyperglycemia Diabetes mellitus halfway insulin use: with intermediate manager use Qualified Code(s): E11.65 - Type 2 diabetes mellitus with hyperglycemia; Z79.4 - watermaster (current) use of insulin (8) GERD (gastroesophageal reflux disease): Status: Chronic Qualifiers: Esophagitis presence: esophagitis presence not specified Qualified Code(s): K21.9 - Gastro-esophageal reflux disease without esophagitis (9) CAD (coronary artery disease): Status: Chronic Qualifiers: Coronary Disease-Associated Artery/Lesion type: [place] artery [place] vs. transplanted heart: [place] heart (10) Dyslipidemia: Status: Chronic
[2023-02-10] MEDS: D5 NS 1,000 ML IV 1,000 ML IV SCH ×2 (13:29→20:41)
[2023-02-10] MEDS ORDERED: DULCOLAX SUPPOSITORY 10 MG RECTAL ONE (17:48)
--- NOTE | 2023-02-10 17:56 | NOTE.SOAP ---
Soap Note Note for Day of Date of Exam: 02/10/23 Subjective Data Subjective Data: POD #2 after laparotomy and lysis of adhesions for small bowel obstruction. No flatus. NG output only 200 cc last 24 hours Objective Data Temperature: 98.3 F Pulse Rate: 63 Respiratory Rate: 20 Blood Pressure: 179/86 O2 Sat by Pulse Oximetry: 95 Objective Data: Abdomen mildly disrtended . Incision is clean. BMP and WBC are normal Assessment Assessment: SBO resolving Plan Plan: Dulcolax suppository, d/c eddy, encourage ambulation. Await return of bowel obstruction.
[2023-02-10] MEDS: GLUCOPHAGE PO SCH (20:41)
[2023-02-11] MEDS: DILAUDID INJ IVP PRN ×3 (04:48→22:15)
[2023-02-11 05:59] LABS: BASOPHILS % (AUTO) 0.3 % (0.2-1.0); EOSINOPHILS # (AUTO) 0.1 x10^3/uL (0.0-0.2); EOSINOPHILS % (AUTO) 1.5 % (0.9-2.9); HEMATOCRIT 40.6 % (42.0-54.0); HEMOGLOBIN 13.6 g/dL (13.5-18.0); LYMPHOCYTES # (AUTO) 0.5 X10^3/uL (1.3-2.9); LYMPHOCYTES % (AUTO) 10.2 % (21.0-51.0); MEAN CORPUSCULAR HGB CONC 33.4 g/dL (33.0-35.0); MEAN CORPUSCULAR VOLUME 80.9 fL (80.0-100.0); MEAN PLATELET VOLUME 9.3 fL (7.4-11.0); MONOCYTES # (AUTO) 0.5 x10^3/uL (0.3-0.8); MONOCYTES % (AUTO) 9.7 % (0.0-13.0); NEUTROPHILS % (AUTO) 78.3 % (42.0-75.0); PLATELET COUNT 190 X10^3/uL (150.0-450.0); RED BLOOD COUNT 5.02 X10^6/uL (4.7-6.0); RED CELL DISTRIBUTION WIDTH 15.2 % (11.6-16.5); WHITE BLOOD COUNT 5.1 X10^3/uL (3.6-10.0)
[2023-02-11 06:15] LABS: ALANINE AMINOTRANSFERASE 42 Units/L (12-78); ALBUMIN 2.5 g/dL (3.4-5.0); ALKALINE PHOSPHATASE 55 Units/L (46-116); ASPARTATE AMINO TRANSFERASE 21 Units/L (15-37); BLOOD UREA NITROGEN 16 mg/dL (7-18); CALCIUM 8.5 mg/dL (8.5-10.1); CARBON DIOXIDE 28.8 mmol/L (21-32); CHLORIDE 101 mmol/L (98-107); COR CA(FOR HYPOALB) 9.7 mg/dL (8.5-10.1); COR NA(FOR HYPERGLY) 136 mmol/L (136-145); GLUCOSE 155 mg/dL (65-99); SODIUM 135 mmol/L (136-145); TOTAL PROTEIN 6.1 g/dL (6.4-8.2); eGFR NON BLACK RACES > 60 (>60)
[2023-02-11] MEDS ORDERED: GLUCOPHAGE ONE ×2 (08:54→20:32)
[2023-02-11] MEDS: LOPRESSOR TAB 25 MG PO SCH ×2 (09:20→20:53)
[2023-02-11] MEDS: GLUCOPHAGE PO SCH ×2 (09:20→20:53)
[2023-02-11] MEDS: PROTONIX INJ 40 MG VIAL IVP SCH (09:21)
[2023-02-11] MEDS: HYZAAR 50/12.5 MG PO SCH (09:21)
[2023-02-11] MEDS: CRESTOR TAB 10 MG PO SCH (09:50)
[2023-02-11] MEDS: D5 NS 1,000 ML IV 1,000 ML IV SCH ×3 (09:50→20:53)
[2023-02-11] MEDS: ZOFRAN INJ 4 MG VIAL IVP PRN (22:15)
[2023-02-12] MEDS: DILAUDID INJ IVP PRN ×4 (05:30→23:02)
[2023-02-12] MEDS: D5 NS 1,000 ML IV 1,000 ML IV SCH ×4 (05:58→20:18)
[2023-02-12 06:43] LABS: BASOPHILS % (AUTO) 0.2 % (0.2-1.0); EOSINOPHILS # (AUTO) 0.1 x10^3/uL (0.0-0.2); EOSINOPHILS % (AUTO) 1.1 % (0.9-2.9); HEMATOCRIT 40.9 % (42.0-54.0); HEMOGLOBIN 13.6 g/dL (13.5-18.0); LYMPHOCYTES # (AUTO) 0.8 X10^3/uL (1.3-2.9); LYMPHOCYTES % (AUTO) 11.8 % (21.0-51.0); MEAN CORPUSCULAR HEMOGLOBIN 27.1 pg (27.0-34.0); MEAN CORPUSCULAR HGB CONC 33.3 g/dL (33.0-35.0); MEAN CORPUSCULAR VOLUME 81.3 fL (80.0-100.0); MEAN PLATELET VOLUME 9.4 fL (7.4-11.0); MONOCYTES # (AUTO) 0.6 x10^3/uL (0.3-0.8); MONOCYTES % (AUTO) 8.6 % (0.0-13.0); NEUTROPHILS # (AUTO) 5.1 x10^3/uL (2.2-4.8); NEUTROPHILS % (AUTO) 78.3 % (42.0-75.0); PLATELET COUNT 210 X10^3/uL (150.0-450.0); RED BLOOD COUNT 5.04 X10^6/uL (4.7-6.0); RED CELL DISTRIBUTION WIDTH 15.3 % (11.6-16.5); WHITE BLOOD COUNT 6.5 X10^3/uL (3.6-10.0)
[2023-02-12 06:50] LABS: ALANINE AMINOTRANSFERASE 61 Units/L (12-78); ALBUMIN 2.5 g/dL (3.4-5.0); ALKALINE PHOSPHATASE 62 Units/L (46-116); AMYLASE 206 Units/L (25-115); ASPARTATE AMINO TRANSFERASE 32 Units/L (15-37); BLOOD UREA NITROGEN 18 mg/dL (7-18); CALCIUM 8.5 mg/dL (8.5-10.1); CARBON DIOXIDE 29.6 mmol/L (21-32); CHLORIDE 106 mmol/L (98-107); COR CA(FOR HYPOALB) 9.7 mg/dL (8.5-10.1); COR NA(FOR HYPERGLY) 144 mmol/L (136-145); CREATININE 1.14 mg/dL (0.70-1.30); GLUCOSE 156 mg/dL (65-99); POTASSIUM 4.2 mmol/L (3.5-5.1); SODIUM 143 mmol/L (136-145); TOTAL PROTEIN 6.3 g/dL (6.4-8.2); eGFR NON BLACK RACES > 60 (>60)
[2023-02-12 06:52] LABS: LIPASE 1507 Units/L (73-393)
[2023-02-12] MEDS: PROTONIX INJ 40 MG VIAL IVP SCH (09:46)
[2023-02-12] MEDS: HYZAAR 50/12.5 MG PO SCH (09:46)
[2023-02-12] MEDS: LOPRESSOR TAB 25 MG PO SCH ×2 (09:46→20:13)
[2023-02-12] MEDS ORDERED: GLUCOPHAGE ONE ×2 (09:52→19:19)
[2023-02-12] MEDS: GLUCOPHAGE PO SCH ×2 (09:53→20:13)
[2023-02-12] MEDS: CRESTOR TAB 10 MG PO SCH (09:53)
--- NOTE | 2023-02-12 22:27 | NOTE.SOAP ---
Soap Note Note for Day of Date of Exam: 02/11/23 Subjective Data Subjective Data: POD # 3 after lysis od adhesions causing small bowel obstruction. Objective Data Pulse Rate: 75 Respiratory Rate: 20 Blood Pressure: 175/81 O2 Sat by Pulse Oximetry: 95 Objective Data: Not pasing much flatus yet. Abdomen still distended BMP is WNL. Hgb=13.6, WBC=5.1 Incision clean and dry. Assessment Assessment: SBO s/p lysis of adhesions Plan Plan: await return of bowel function.
--- NOTE | 2023-02-12 22:27 | NOTE.SOAP ---
Soap Note Note for Day of Date of Exam: 02/12/23 Subjective Data Subjective Data: POD # 4 after lysis of adhesions to reslove small bowel obstruction. Passing a small amount of flatus . Objective Data Temperature: 99.8 F Pulse Rate: 66 Respiratory Rate: 18 Blood Pressure: 163/74 O2 Sat by Pulse Oximetry: 96 Objective Data: Abdomen less distended. Incision clean and dry. Assessment Assessment: Small bowel obstruction, s/p lysis of adhesions, improving Plan Plan: D/C NG tube , sips of clear liquids .
--- NOTE | 2023-02-12 22:56 | PCM.PROG ---
Progress Note - Progress Note for Day of Date of Exam: 02/08/23 - Subjective Subjective: IS A 67 YEAR OLD PATIENT OF OURS WITH HX OF CAD, DYSLIPIDEMIA, GERD, HTN, TYPE 2 DIABETES, PROSTATE CANCER, HERNIA REPAIR, CHOLECYSTECTOMY, AND CARDIAC STENTS. HE IS CURRENTLY INPATIENT STATUS FOR TREATMENT OF SMALL BOWEL OBSTRUCTION, ACUTE KIDNEY INJURY, DEHYDRATION, AND HYPONATREMIA. HE CONTINUES TO COMPLAIN OF EPIGASTRIC PAIN AND NAUSEA. AN NG HAS BEEN INSERTED AND IS CONNECTED TO LOW INTERMITTENT SUCTION. ON EXAMINATION, HEART IS REGULAR IN RATE AND RHYTHM. BILATERAL LUNGS ARE NOTED WITH DIMINISHED LUNG SOUNDS THROUGHOUT. ABDOMEN IS ROUND, SOFT, AND NOTED WITH EPIGASRIC AND LUQ AND LLQ TENDERNESS TO PALPATION. HYPOACTIVE BOWEL SOUNDS NOTED. GOOD MOVEMENT NOTED TO UPPER AND LOWER EXTREMITIES. TRACE EDEMA NOTED TO LOWER EXTREMITIES. HIS VITALS THIS MORNING ARE: 97.6-65-18-94%-146/70. HE IS ON ROOM AIR. LABS WERE OBTAINED. WBC 5.3, RBC 4.97, HGB 13.4, HCT 40.2, PLT COUNT 156, SODIUM 137, POTASSIUM 3.5, CHLORIDE 101, CARBON DIOXIDE 33.9, BUN 27, CREATININE 1.26, GLUCOSE 78, CALCIUM 7.9, AST 23, ALT 47, ALK PHOS 48, TOTAL PROTEIN 5.7, ALBUMIN 2.7, AMYLASE 345, LIPASE 3080. A KUB WAS OBTAINED AND REVEALED: Findings compatible with partial small bowel obstruction, unchanged. HE IS CURRENTLY RECEIVING D51/2 NORMAL SALINE AT 150 ML/HR, DILAUDID 1MG IV Q4H PRN, LOVENOX 30MG SC HS, OTBS ACHS, HUMULIN R SLIDING SCALE, ZOFRAN 4MG IV Q6H PRN, PROTONIX 40MG IV DAILY. , GENERAL SURGEON, CONSULTED WITH PATIENT AND PLANS FOR LAPAROTOMY TODAY. WE ARE IN AGREEMENT WITH PLANS. WE WILL CONTINUE WITH CURRENT PLAN OF CARE TODAY. OTHERWISE, WE WILL FOLLOW UP WITH AM LABS AND KUB AND CONTINUE TO MONITOR. TIME SPENT ON CLINICAL ASSESSMENT, REVIEWING LABS AND IMAGING, DECISION MAKING, AND DOCUMENTATION GREATER THAN 45 MINUTES. - Past Medical Family Social History Allergies: Allergies aspirin Allergy (Verified 02/06/23 10:43) Sulfa (Sulfonamide Antibiotics) [SULFA] Allergy (Verified 02/06/23 10:43) - Vital Signs and I&O's Vital Signs: Temperature 99.8 F Pulse Rate [Left] 63 Pulse Rate 66 Respiratory Rate 18 Blood Pressure [Left Arm] 168/74 Blood Pressure 163/74 O2 Sat by Pulse Oximetry 96 Intake and Output: Intake & Output 02/10/23 02/11/23 02/12/23 02/13/23 11:59 11:59 11:59 11:59 Intake Total 2191 / 2191 2034 / 2034 2250 / 2250 1060 / 1060 Output Total 1400 / 1400 1974 / 2224 975 / 975 Balance 791 / 791 59 / 85 / 85 - Physical Exam Oriented: Normal, Time, Person, Place Eyes: Normal Ear: Normal Nose: Normal Throat: Normal Respiratory: Normal Cardiovascular: Normal : Normal Auscultation: Bowel Sounds: Decreased Palpation: Normal Tenderness: LUQ, LLQ, Epigastric (dressing intact) Skin: Normal Musculoskeletal: Normal Psychiatric: Normal Mood Description: Calm Affect: Normal Speech Pattern: Clear, Appropriate - Laboratory and Diagnostics Result Diagrams: 02/12/23 05:26 02/12/23 05:26 Labs: 02/08/23 14:15 Peritoneal Fluid Wound Gram Stain - Final 02/08/23 14:15 Peritoneal Fluid Wound Culture - Final Laboratory WBC 6.5 X10^3/uL (3.6-10.0) 02/12/23 05:26 RBC 5.04 X10^6/uL (4.7-6.0) 02/12/23 05:26 Hgb 13.6 g/dL (13.5-18.0) 02/12/23 05:26 Hct 40.9 % (42.0-54.0) L 02/12/23 05:26 MCV 81.3 fL (80.0-100.0) 02/12/23 05:26 MCH 27.1 pg (27.0-34.0) 02/12/23 05:26 MCHC 33.3 g/dL (33.0-35.0) 02/12/23 05:26 RDW 15.3 % (11.6-16.5) 02/12/23 05:26 Plt Count 210 X10^3/uL (150.0-450.0) 02/12/23 05:26 MPV 9.4 fL (7.4-11.0) 02/12/23 05:26 Neut % (Auto) 78.3 % (42.0-75.0) H 02/12/23 05:26 Lymph % (Auto) 11.8 % (21.0-51.0) L 02/12/23 05:26 [place] % (Auto) 8.6 % (0.0-13.0) 02/12/23 05:26 Eos % (Auto) 1.1 % (0.9-2.9) 02/12/23 05:26 Baso % (Auto) 0.2 % (0.2-1.0) 02/12/23 05:26 Neut # (Auto) 5.1 x10^3/uL (2.2-4.8) H 02/12/23 05:26 Lymph # (Auto) 0.8 X10^3/uL (1.3-2.9) L 02/12/23 05:26 [place] # (Auto) 0.6 x10^3/uL (0.3-0.8) 02/12/23 05:26 Eos # (Auto) 0.1 x10^3/uL (0.0-0.2) 02/12/23 05:26 Baso # (Auto) 0.0 X10^3/uL (0.0-0.1) 02/12/23 05:26 Absolute Nucleated RBC 0.0 /100WBC 02/12/23 05:26 Sodium 143 mmol/L (136-145) 02/12/23 05:26 Corrected Sodium 144 mmol/L (136-145) 02/12/23 05:26 Potassium 4.2 mmol/L (3.5-5.1) 02/12/23 05:26 Chloride 106 mmol/L (98-107) 02/12/23 05:26 Carbon Dioxide 29.6 mmol/L (21-32) 02/12/23 05:26 BUN 18 mg/dL (7-18) 02/12/23 05:26 Creatinine 1.14 mg/dL (0.70-1.30) 02/12/23 05:26 Est GFR (MDRD) Af Amer > 60 (>60) 02/12/23 05:26 Est GFR (MDRD) Non-Af > 60 (>60) 02/12/23 05:26 Glucose 156 mg/dL (65-99) H 02/12/23 05:26 POC Glucose (mg/dL) 137 mg/dL (65-99) H 02/12/23 20:37 Calcium 8.5 mg/dL (8.5-10.1) 02/12/23 05:26 Corrected Calcium 9.7 mg/dL (8.5-10.1) 02/12/23 05:26 Total Bilirubin 1.20 mg/dL (0.2-1.0) H 02/12/23 05:26 AST 32 Units/L (15-37) 02/12/23 05:26 ALT 61 Units/L (12-78) 02/12/23 05:26 Alkaline Phosphatase 62 Units/L (46-116) 02/12/23 05:26 Troponin I High Sens 12.1 ng/L (4.0-60.0) 02/06/23 10:52 Total Protein 6.3 g/dL (6.4-8.2) L 02/12/23 05:26 Albumin 2.5 g/dL (3.4-5.0) L 02/12/23 05:26 Globulin 3.8 g/dL (2.5-4.5) 02/12/23 05:26 Albumin/Globulin Ratio 0.7 Ratio (1.1-2.1) L 02/12/23 05:26 Amylase 206 Units/L (25-115) H 02/12/23 05:26 Lipase 1507 Units/L (73-393) H 02/12/23 05:26 Specimen Type Clean catch urine 02/06/23 12:10 Urine Color Dark yellow (YELLOW) 02/06/23 12:10 Urine Appearance Clear (CLEAR) 02/06/23 12:10 Urine pH 5.0 (5.0 - 8.0) 02/06/23 12:10 Ur Specific [place] 1.025 (1.000-1.030) 02/06/23 12:10 Urine Protein 2+ (NEGATIVE) 02/06/23 12:10 Urine Glucose (UA) 1+ (NEGATIVE) 02/06/23 12:10 Urine Ketones Negative (NEGATIVE) 02/06/23 12:10 Urine Blood 1+ (NEGATIVE) 02/06/23 12:10 Urine Nitrite Negative (NEGATIVE) 02/06/23 12:10 Urine Bilirubin 1+ (NEGATIVE) 02/06/23 12:10 Urine Urobilinogen Normal (NORMAL) 02/06/23 12:10 Ur Leukocyte Esterase Negative (NEGATIVE) 02/06/23 12:10 Urine RBC 0-2 /HPF (0-3) 02/06/23 12:10 Urine WBC 0-2 /HPF (0-5) 02/06/23 12:10 Ur Squamous Epith Cells Rare /HPF (NEGATIVE) 02/06/23 12:10 Urine Bacteria Trace /HPF (NEGATIVE) 02/06/23 12:10 Hyaline Casts Few /LPF (NEGATIVE) 02/06/23 12:10 Urine Mucus Few /HPF (NEGATIVE) 02/06/23 12:10 Ur Culture Indicated? No/not indicated 02/06/23 12:10 - Plan (1) Small bowel obstruction Status: Acute Plan: SURGICAL CONSULT, D51/2 NORMAL SALINE AT 150 ML/HR, DILAUDID 1MG IV Q4H PRN, LOVENOX 30MG SC HS, OTBS ACHS, HUMULIN R SLIDING SCALE, ZOFRAN 4MG IV Q6H PRN, PROTONIX 40MG IV DAILY. RESUME HOME MEDS (2) Acute pancreatitis Status: Acute Qualifiers: Pancreatitis type: unspecified pancreatitis type Acute pancreatitis complication: unspecified Qualified Code(s): K85.90 - Acute pancreatitis without necrosis or infection, unspecified (3) Acute kidney injury Status: Acute (4) Dehydration Status: Acute (5) Hyponatremia Status: Acute (6) HTN (hypertension) Status: Chronic Qualifiers: Hypertension type: primary hypertension Qualified Code(s): I10 - Essential (primary) hypertension (7) DM II (diabetes mellitus, type II), controlled Status: Chronic Qualifiers: Diabetes mellitus manager terminal insulin use: with manager terminal use Diabetes mellitus complication status: with hyperglycemia Qualified Code(s): E11.65 - Type 2 diabetes mellitus with hyperglycemia; Z79.4 - manager terminal (current) use of insulin (8) GERD (gastroesophageal reflux disease) Status: Chronic Qualifiers: Esophagitis presence: esophagitis presence not specified Qualified Code(s): K21.9 - Gastro-esophageal reflux disease without esophagitis (9) CAD (coronary artery disease) Status: Chronic Qualifiers: Coronary Disease-Associated Artery/Lesion type: [place] artery [place] vs. transplanted heart: [place] heart (10) Dyslipidemia Status: Chronic
[2023-02-12] MEDS: ZOFRAN INJ 4 MG VIAL IVP PRN (23:02)
[2023-02-13] MEDS: D5 NS 1,000 ML IV 1,000 ML IV SCH ×3 (02:21→20:23)
[2023-02-13] MEDS: DILAUDID INJ IVP PRN ×4 (03:38→20:27)
[2023-02-13 06:33] LABS: BASOPHILS % (AUTO) 0.2 % (0.2-1.0); EOSINOPHILS % (AUTO) 0.5 % (0.9-2.9); HEMATOCRIT 40.6 % (42.0-54.0); HEMOGLOBIN 13.5 g/dL (13.5-18.0); LYMPHOCYTES # (AUTO) 0.4 X10^3/uL (1.3-2.9); LYMPHOCYTES % (AUTO) 3.8 % (21.0-51.0); MEAN CORPUSCULAR HEMOGLOBIN 27.1 pg (27.0-34.0); MEAN CORPUSCULAR HGB CONC 33.4 g/dL (33.0-35.0); MEAN CORPUSCULAR VOLUME 81.1 fL (80.0-100.0); MEAN PLATELET VOLUME 9.2 fL (7.4-11.0); MONOCYTES # (AUTO) 0.1 x10^3/uL (0.3-0.8); MONOCYTES % (AUTO) 1.3 % (0.0-13.0); NEUTROPHILS # (AUTO) 9.1 x10^3/uL (2.2-4.8); NEUTROPHILS % (AUTO) 94.2 % (42.0-75.0); PLATELET COUNT 204 X10^3/uL (150.0-450.0); RED CELL DISTRIBUTION WIDTH 15.2 % (11.6-16.5); WHITE BLOOD COUNT 9.7 X10^3/uL (3.6-10.0)
[2023-02-13 06:55] LABS: ALANINE AMINOTRANSFERASE 94 Units/L (12-78); ALBUMIN 2.5 g/dL (3.4-5.0); ALKALINE PHOSPHATASE 72 Units/L (46-116); ASPARTATE AMINO TRANSFERASE 45 Units/L (15-37); BLOOD UREA NITROGEN 18 mg/dL (7-18); CALCIUM 8.6 mg/dL (8.5-10.1); CARBON DIOXIDE 28.4 mmol/L (21-32); CHLORIDE 105 mmol/L (98-107); COR CA(FOR HYPOALB) 9.8 mg/dL (8.5-10.1); COR NA(FOR HYPERGLY) 141 mmol/L (136-145); CREATININE 1.11 mg/dL (0.70-1.30); GLUCOSE 152 mg/dL (65-99); POTASSIUM 4.3 mmol/L (3.5-5.1); SODIUM 140 mmol/L (136-145); TOTAL PROTEIN 6.3 g/dL (6.4-8.2); eGFR NON BLACK RACES > 60 (>60)
--- NOTE | 2023-02-13 07:03 | RAD ---
HISTORYABDOMINAL PAIN, SBO, S/P [id number]/07/2023 r.br.br change are noted. Numerous loops of air-filled small bowel within the abdomen are observed may be on basis postoperative ileus. However, developing small-bowel obstruction cannot be excluded is minimal distal colonic gas is noted. Interval removal of enteric tube is noted.IMPRESSIONMultiple loops of air-filled small bowel without significant distal colonic gas is noted. Underlying small-bowel obstruction cannot be excluded.Electronically signed by: AKASH DE LA CRUZ (February 13, 2023 06:56:28)
[2023-02-13 07:42] LABS: BAND NEUTROPHILS % 40 % (0-10); PLATELET MORPHOLOGY COMMENT NORMAL (NORMAL)
[2023-02-13 09:14] VITALS: BMI 33.5
[2023-02-13] MEDS: ZOFRAN INJ 4 MG VIAL IVP PRN (09:19)
[2023-02-13] MEDS ORDERED: DULCOLAX SUPPOSITORY 10 MG RECTAL ONE (09:20)
[2023-02-13] MEDS ORDERED: GLUCOPHAGE ONE ×2 (09:34→20:13)
[2023-02-13] MEDS: PROTONIX INJ 40 MG VIAL IVP SCH (09:53)
[2023-02-13] MEDS: LOPRESSOR TAB 25 MG PO SCH ×2 (09:53→20:23)
[2023-02-13] MEDS: HYZAAR 50/12.5 MG PO SCH (09:53)
[2023-02-13] MEDS: CRESTOR TAB 10 MG PO SCH (09:53)
[2023-02-13] MEDS: GLUCOPHAGE PO SCH ×2 (09:53→20:23)
--- NOTE | 2023-02-13 13:51 | DR.OPNOTE ---
OP NOTE Pre-Op Diagnosis: Small bowel obstruction Post-Op Diagnosis: same , secondary to adhesions from previous surgeries Procedure Date Date Of Procedure: 02/08/23 Procedure: PROCEDURE :LAPAROTOMY, LYSIS OF ADHESIONS, INCIDENTAL APPENDECTOMY, NARRARTIVE : Patient was taken to the operative suite and placed in the Supine position. General anesthesia induced . Time out for the procedure obtained. Nasogastric tube advanced to the appropriate depth and an additional liter and a half of bilious fluid removed from the stomach. Abdomen was prepped and draped in sterile fashion. Time out for the procedure obtained. Midline incision made with a # 10 blade knife . Midline fascia opened with electrocautery . Peritoneum grasped with hemostats and the peritoneum opened with Metzenbaum scissors. Patient had some cloudy fluid which was cultured. Incision was completed with electrocautery . There was markedly dilated proximal small bowel approximately 8 cm in diameter . There were significant adhesions to the left abdominal wall which was the transition point between the dilated bowel and the decompressed ileum. Appendix was intimately involved with these adhesions . All adhesions taken down sharply with Metzenbaum scissors. The base of the appendix then divided with one fire the KESHA stapler . Abdomen was irrigated and suctioned free. The midline fascia then closed with running looped # 1 PDS suture. The skin closed with skin danette and an Aquacel dressing applied over the incision . Patient taken back to the floor with a nasogastric tube and Carter catheter in place. Type of Anesthesia: General Anesthetic w/ETT Findings: dilated jejunum secondary to adhesions, decompressed ileum, appendix involved in dense adhesions Type of Fluids Used:: Lactated Ringers EBL: < 50 cc Drains/Tubes Placed: None Cultures: obtained of abdominal fluid Complications:: none Needle/Sponge Count:: correct Disposition/Condition: Pt. tolerated procedure without difficulty. Extubated in the OR and taken to PACU in stable condition.
--- NOTE | 2023-02-13 20:36 | PCM.PROG ---
Progress Note - Progress Note for Day of Date of Exam: 02/12/23 - Subjective Subjective: IS A 67 YEAR OLD PATIENT OF OURS WITH HX OF CAD, DYSLIPIDEMIA, GERD, HTN, TYPE 2 DIABETES, PROSTATE CANCER, HERNIA REPAIR, CHOLECYSTECTOMY, AND CARDIAC STENTS. HE IS CURRENTLY INPATIENT STATUS FOR TREATMENT OF SMALL BOWEL OBSTRUCTION, ACUTE KIDNEY INJURY, DEHYDRATION, AND HYPONATREMIA. HE IS STATUS POST LAPAROTOMY AND APPENDECTOMY PER . HE CONTINUES TO COMPLAIN OF EPIGASTRIC PAIN AND NAUSEA. AN NG TUBE IS CONNECTED TO LOW INTERMITTENT SUCTION. ON EXAMINATION, HEART IS REGULAR IN RATE AND RHYTHM. BILATERAL LUNGS ARE NOTED WITH DIMINISHED LUNG SOUNDS THROUGHOUT. ABDOMEN IS ROUND, SOFT, AND NOTED WITH DIFFUSE TENDERNESS TO PALPATION. ABDOMINAL DRESSING IS INTACT. HYPOACTIVE BOWEL SOUNDS NOTED. GOOD MOVEMENT NOTED TO UPPER AND LOWER EXTREMITIES. TRACE EDEMA NOTED TO LOWER EXTREMITIES. HE REPORTS THAT PAIN AND NAUSEA ARE CONTROLLED AT THIS TIME. HIS VITALS THIS MORNING ARE: 99.8-66-18-96%-163/74. HE IS ON ROOM AIR. LABS WERE OBTAINED. WBC 6.5, RC 5.04, HGB 13.6, HCT 40.9, PLT COUNT 210, SODIUM 143, POTASSUM 4.2, CHLORIDE 106, CARBON DIOXIDE 29.6, BUN 18, CREATININE 1.14, GLUCOSE 156, CALCIUM 8.5, TOTAL BILI 1.20, AST 32, ALT 61, ALK PHOS 62, TOTAL PROTEIN 6.3, ALBUMIN 2.5, AMYLASE 206, LIPASE 1507. ABDOMINAL CULTURES ARE PENDING. HE IS CURRENTLY RECEIVING D5NS AT 100 ML/HR, DILAUDID 1MG IV Q2H PRN, LOVENOX 30MG SC HS, OTBS ACHS, HUMULIN R SLIDING SCALE, ZOFRAN 4MG IV Q6H PRN, PROTONIX 40MG IV DAILY, AND THE POTASSIUM AND MAGNESIUM PROTOCOLS. HIS HOME MEDICATIONS WERE RESUMED. , GENERAL SURGEON, CONTINUES TO FOLLOW PATIENT. WE WILL CONTINUE WITH CURRENT PLAN OF CARE TODAY. OTHERWISE, WE WILL FOLLOW UP WITH AM LABS AND KUB AND CONTINUE TO MONITOR . TIME SPENT ON CLINICAL ASSESSMENT, REVIEWING LABS AND IMAGING, DECISION MAKING, AND DOCUMENTATION GREATER THAN 45 MINUTES. - Past Medical Family Social History Past Med/Fam/Surg Hx: No changes since H&P Allergies: Allergies aspirin Allergy (Verified 02/06/23 10:43) Sulfa (Sulfonamide Antibiotics) [SULFA] Allergy (Verified 02/06/23 10:43) - Review of Systems ROS: No change since H&P - Vital Signs and I&O's Vital Signs: Temperature 98 F Pulse Rate [Left] 70 Pulse Rate 66 Respiratory Rate 18 Blood Pressure [Left Arm] 136/74 Blood Pressure 163/74 O2 Sat by Pulse Oximetry 97 Intake and Output: Intake & Output 02/11/23 02/12/23 02/13/23 02/14/23 11:59 11:59 11:59 11:59 Intake Total 2033 / 2033 2250 / 2250 2841 / 2841 740 / 740 Output Total 1974 2225 / 5 1755 / 1755 Balance 1086 / 1086 740 / 740 - Physical Exam Oriented: Normal, Time, Person, Place Eyes: Normal Ear: Normal Nose: Normal, Other (NG TUBE TO INTERMITTENT SUCTION ) Throat: Normal Respiratory: Normal Cardiovascular: Normal : Normal Auscultation: Bowel Sounds: Decreased Palpation: Normal Tenderness: Diffuse, Epigastric (dressing intact) Skin: Normal Musculoskeletal: Normal Psychiatric: Normal Mood Description: Calm Affect: Normal Speech Pattern: Clear, Appropriate - Laboratory and Diagnostics Result Diagrams: 02/13/23 05:20 02/13/23 05:20 Labs: 02/08/23 14:15 Peritoneal Fluid Wound Gram Stain - Final 02/08/23 14:15 Peritoneal Fluid Wound Culture - Final Laboratory WBC 9.7 X10^3/uL (3.6-10.0) 02/13/23 05:20 RBC 5.00 X10^6/uL (4.7-6.0) 02/13/23 05:20 Hgb 13.5 g/dL (13.5-18.0) 02/13/23 05:20 Hct 40.6 % (42.0-54.0) L 02/13/23 05:20 MCV 81.1 fL (80.0-100.0) 02/13/23 05:20 MCH 27.1 pg (27.0-34.0) 02/13/23 05:20 MCHC 33.4 g/dL (33.0-35.0) 02/13/23 05:20 RDW 15.2 % (11.6-16.5) 02/13/23 05:20 Plt Count 204 X10^3/uL (150.0-450.0) 02/13/23 05:20 Plt Count Comment Adequate (ADEQUATE) 02/13/23 05:20 MPV 9.2 fL (7.4-11.0) 02/13/23 05:20 Neut % (Auto) 94.2 % (42.0-75.0) H 02/13/23 05:20 Lymph % (Auto) 3.8 % (21.0-51.0) L 02/13/23 05:20 [place] % (Auto) 1.3 % (0.0-13.0) 02/13/23 05:20 Eos % (Auto) 0.5 % (0.9-2.9) L 02/13/23 05:20 Baso % (Auto) 0.2 % (0.2-1.0) 02/13/23 05:20 Neut # (Auto) 9.1 x10^3/uL (2.2-4.8) H 02/13/23 05:20 Lymph # (Auto) 0.4 X10^3/uL (1.3-2.9) L 02/13/23 05:20 [place] # (Auto) 0.1 x10^3/uL (0.3-0.8) L 02/13/23 05:20 Eos # (Auto) 0.0 x10^3/uL (0.0-0.2) 02/13/23 05:20 Baso # (Auto) 0.0 X10^3/uL (0.0-0.1) 02/13/23 05:20 Absolute Nucleated RBC 0.0 /100WBC 02/13/23 05:20 Total Counted 100 02/13/23 05:20 Neutrophils % (Manual) 50 % (39-76) 02/13/23 05:20 Band Neutrophils % 40 % (0-10) H 02/13/23 05:20 Lymphocytes % (Manual) 7 % (13-43) L 02/13/23 05:20 Monocytes % (Manual) 2 % (4-9) L 02/13/23 05:20 Eosinophils % (Manual) 1 % (0-6) 02/13/23 05:20 Plt Morphology Comment Normal (NORMAL) 02/13/23 05:20 RBC Morphology Normal (NORMAL) 02/13/23 05:20 Sodium 140 mmol/L (136-145) 02/13/23 05:20 Corrected Sodium 141 mmol/L (136-145) 02/13/23 05:20 Potassium 4.3 mmol/L (3.5-5.1) 02/13/23 05:20 Chloride 105 mmol/L (98-107) 02/13/23 05:20 Carbon Dioxide 28.4 mmol/L (21-32) 02/13/23 05:20 BUN 18 mg/dL (7-18) 02/13/23 05:20 Creatinine 1.11 mg/dL (0.70-1.30) 02/13/23 05:20 Est GFR (MDRD) Af Amer > 60 (>60) 02/13/23 05:20 Est GFR (MDRD) Non-Af > 60 (>60) 02/13/23 05:20 Glucose 152 mg/dL (65-99) H 02/13/23 05:20 POC Glucose (mg/dL) 137 mg/dL (65-99) H 02/13/23 16:44 Calcium 8.6 mg/dL (8.5-10.1) 02/13/23 05:20 Corrected Calcium 9.8 mg/dL (8.5-10.1) 02/13/23 05:20 Total Bilirubin 1.50 mg/dL (0.2-1.0) H 02/13/23 05:20 AST 45 Units/L (15-37) H 02/13/23 05:20 ALT 94 Units/L (12-78) H 02/13/23 05:20 Alkaline Phosphatase 72 Units/L (46-116) 02/13/23 05:20 Troponin I High Sens 12.1 ng/L (4.0-60.0) 02/06/23 10:52 Total Protein 6.3 g/dL (6.4-8.2) L 02/13/23 05:20 Albumin 2.5 g/dL (3.4-5.0) L 02/13/23 05:20 Globulin 3.8 g/dL (2.5-4.5) 02/13/23 05:20 Albumin/Globulin Ratio 0.7 Ratio (1.1-2.1) L 02/13/23 05:20 Amylase 206 Units/L (25-115) H 02/12/23 05:26 Lipase 1507 Units/L (73-393) H 02/12/23 05:26 Specimen Type Clean catch urine 02/06/23 12:10 Urine Color Dark yellow (YELLOW) 02/06/23 12:10 Urine Appearance Clear (CLEAR) 02/06/23 12:10 Urine pH 5.0 (5.0 - 8.0) 02/06/23 12:10 Ur Specific [place] 1.025 (1.000-1.030) 02/06/23 12:10 Urine Protein 2+ (NEGATIVE) 02/06/23 12:10 Urine Glucose (UA) 1+ (NEGATIVE) 02/06/23 12:10 Urine Ketones Negative (NEGATIVE) 02/06/23 12:10 Urine Blood 1+ (NEGATIVE) 02/06/23 12:10 Urine Nitrite Negative (NEGATIVE) 02/06/23 12:10 Urine Bilirubin 1+ (NEGATIVE) 02/06/23 12:10 Urine Urobilinogen Normal (NORMAL) 02/06/23 12:10 Ur Leukocyte Esterase Negative (NEGATIVE) 02/06/23 12:10 Urine RBC 0-2 /HPF (0-3) 02/06/23 12:10 Urine WBC 0-2 /HPF (0-5) 02/06/23 12:10 Ur Squamous Epith Cells Rare /HPF (NEGATIVE) 02/06/23 12:10 Urine Bacteria Trace /HPF (NEGATIVE) 02/06/23 12:10 Hyaline Casts Few /LPF (NEGATIVE) 02/06/23 12:10 Urine Mucus Few /HPF (NEGATIVE) 02/06/23 12:10 Ur Culture Indicated? No/not indicated 02/06/23 12:10 Tissue Pathology See comment. 02/08/23 14:30 - Plan (1) Small bowel obstruction Status: Acute Plan: D5NS AT 100 ML/HR, DILAUDID 1MG IV Q2H PRN, LOVENOX 30MG SC HS, OTBS ACHS, HUMULIN R SLIDING SCALE, ZOFRAN 4MG IV Q6H PRN, PROTONIX 40MG IV DAILY, AND THE POTASSIUM AND MAGNESIUM PROTOCOLS. CONTINUE HOME MEDS (2) Acute pancreatitis Status: Acute Qualifiers: Pancreatitis type: unspecified pancreatitis type Acute pancreatitis complication: unspecified Qualified Code(s): K85.90 - Acute pancreatitis without necrosis or infection, unspecified (3) Status post appendectomy Status: Acute (4) Status post laparotomy Status: Acute (5) Acute kidney injury Status: Acute (6) Dehydration Status: Acute (7) Hyponatremia Status: Acute (8) HTN (hypertension) Status: Chronic Qualifiers: Hypertension type: primary hypertension Qualified Code(s): I10 - Essential (primary) hypertension (9) DM II (diabetes mellitus, type II), controlled Status: Chronic Qualifiers: Diabetes mellitus superintendent marine oil terminal insulin use: with superintendent marine oil terminal use Diabetes mellitus complication status: with hyperglycemia Qualified Code(s): E11.65 - Type 2 diabetes mellitus with hyperglycemia; Z79.4 - intermediate card tender (current) use of insulin (10) GERD (gastroesophageal reflux disease) Status: Chronic Qualifiers: Esophagitis presence: esophagitis presence not specified Qualified Code(s): K21.9 - Gastro-esophageal reflux disease without esophagitis (11) CAD (coronary artery disease) Status: Chronic Qualifiers: Coronary Disease-Associated Artery/Lesion type: [place] artery [place] vs. transplanted heart: [place] heart (12) Dyslipidemia Status: Chronic
--- NOTE | 2023-02-13 23:50 | NOTE.SOAP ---
Soap Note Note for Day of Date of Exam: 02/13/23 Subjective Data Subjective Data: POD # 5 after lysis of adhesions for small bowel obstruction. Vomited once on clear liquids, otherwise tolerating them . Objective Data Temperature: 99.3 F Pulse Rate: 112 Respiratory Rate: 20 Blood Pressure: 156/76 Objective Data: Hgb=13.5 Cr=1.1, WBC=9.7 Abdomen is mildly distended. Is passing flatus. Assessment Assessment: Bowel obstruction , resolving Plan Plan: Continue IV clear liquids . Advance diet as tolerated.
[2023-02-14] MEDS: DILAUDID INJ IVP PRN ×3 (03:25→13:50)
[2023-02-14] MEDS: ZOFRAN INJ 4 MG VIAL IVP PRN ×2 (03:25→13:59)
[2023-02-14 06:15] LABS: BASOPHILS % (AUTO) 0.3 % (0.2-1.0); EOSINOPHILS % (AUTO) 0.6 % (0.9-2.9); HEMATOCRIT 37.7 % (42.0-54.0); HEMOGLOBIN 12.6 g/dL (13.5-18.0); LYMPHOCYTES # (AUTO) 0.6 X10^3/uL (1.3-2.9); MEAN CORPUSCULAR HEMOGLOBIN 27.1 pg (27.0-34.0); MEAN CORPUSCULAR HGB CONC 33.5 g/dL (33.0-35.0); MEAN CORPUSCULAR VOLUME 80.9 fL (80.0-100.0); MEAN PLATELET VOLUME 9.1 fL (7.4-11.0); MONOCYTES # (AUTO) 0.6 x10^3/uL (0.3-0.8); MONOCYTES % (AUTO) 7.9 % (0.0-13.0); NEUTROPHILS # (AUTO) 6.1 x10^3/uL (2.2-4.8); NEUTROPHILS % (AUTO) 83.2 % (42.0-75.0); PLATELET COUNT 179 X10^3/uL (150.0-450.0); RED BLOOD COUNT 4.66 X10^6/uL (4.7-6.0); RED CELL DISTRIBUTION WIDTH 15.1 % (11.6-16.5); WHITE BLOOD COUNT 7.3 X10^3/uL (3.6-10.0)
[2023-02-14 06:23] LABS: ALANINE AMINOTRANSFERASE 88 Units/L (12-78); ALBUMIN 2.3 g/dL (3.4-5.0); ALKALINE PHOSPHATASE 63 Units/L (46-116); ASPARTATE AMINO TRANSFERASE 28 Units/L (15-37); BLOOD UREA NITROGEN 17 mg/dL (7-18); CALCIUM 8.2 mg/dL (8.5-10.1); CHLORIDE 105 mmol/L (98-107); COR CA(FOR HYPOALB) 9.6 mg/dL (8.5-10.1); COR NA(FOR HYPERGLY) 141 mmol/L (136-145); CREATININE 1.07 mg/dL (0.70-1.30); GLUCOSE 140 mg/dL (65-99); POTASSIUM 3.9 mmol/L (3.5-5.1); SODIUM 140 mmol/L (136-145); TOTAL PROTEIN 5.8 g/dL (6.4-8.2); eGFR NON BLACK RACES > 60 (>60)
[2023-02-14] MEDS ORDERED: GLUCOPHAGE ONE ×2 (08:55→19:35)
[2023-02-14] MEDS: PROTONIX INJ 40 MG VIAL IVP SCH (09:08)
[2023-02-14] MEDS: HYZAAR 50/12.5 MG PO SCH (09:09)
[2023-02-14] MEDS: GLUCOPHAGE PO SCH ×2 (09:10→20:43)
[2023-02-14] MEDS: CRESTOR TAB 10 MG PO SCH (09:10)
[2023-02-14] MEDS: LOPRESSOR TAB 25 MG PO SCH ×2 (09:10→20:43)
[2023-02-14] MEDS: D5 NS 1,000 ML IV 1,000 ML IV SCH (09:46)
--- NOTE | 2023-02-14 21:49 | PCM.PROG ---
Progress Note - Progress Note for Day of Date of Exam: 02/13/23 - Subjective Subjective: IS A 67 YEAR OLD PATIENT OF OURS WITH HX OF CAD, DYSLIPIDEMIA, GERD, HTN, TYPE 2 DIABETES, PROSTATE CANCER, HERNIA REPAIR, CHOLECYSTECTOMY, AND CARDIAC STENTS. HE IS CURRENTLY INPATIENT STATUS FOR TREATMENT OF SMALL BOWEL OBSTRUCTION, ACUTE KIDNEY INJURY, DEHYDRATION, AND HYPONATREMIA. HE IS STATUS POST LAPAROTOMY AND APPENDECTOMY PER . HE REPORTS SLIGHT IMPROVEMENT IN EPIGASTRIC PAIN AND NAUSEA THIS MORNING. HE NO LONGER HAS AN NG TUBE AND HAS BEEN TOLERATING CLEAR LIQUIDS WELL. HE HAS YET TO HAVE A BOWEL MOVEMENT SINCE SURGERY, BUT IS PASSING A SMALL AMOUNT OF FLATUS. ON EXAMINATION, HEART IS REGULAR IN RATE AND RHYTHM. BILATERAL LUNGS ARE NOTED WITH DIMINISHED LUNG SOUNDS THROUGHOUT. ABDOMEN IS ROUND, SOFT, AND NOTED WITH DIFFUSE TENDERNESS TO PALPATION. ABDOMINAL DRESSING IS INTACT. HYPOACTIVE BOWEL SOUNDS NOTED. GOOD MOVEMENT NOTED TO UPPER AND LOWER EXTREMITIES. TRACE EDEMA NOTED TO LOWER EXTREMITIES. HE REPORTS THAT PAIN AND NAUSEA ARE CONTROLLED AT THIS TIME. HIS VITALS THIS MORNING ARE: 99.3-100-20-95%-156/76. HE IS ON ROOM AIR. LABS WERE OBTAINED. WBC 9.7, RBC 5.00, HGB 13.5, HCT 40.6, PLT COUNT 204, SODIUM 140, POTASSIUM 4.3, CHLORIDE 105, BUN 18, CREATININE 1.11, GLUCOSE 152, CALCIUM 8.6, TOTAL BILI 1.50, AST 45, ALT 94, ALK PHOS 72, TOTAL PROTEIN 6.3, ALBUMIN 2.5. PERITONEAL FLUID CULTURES ARE PENDING. A KUB WAS OBTAINED AND REVEALED: Multiple loops of air-filled small bowel without significant distal colonic gas is noted. Underlying small-bowel obstruction cannot be excluded. HE IS CURRENTLY RECEIVING DILAUDID 1MG IV Q2H PRN, OTBS ACHS, HUMULIN R SLIDING SCALE, ZOFRAN 4MG IV Q6H PRN, PROTONIX 40MG IV DAILY, AND THE POTASSIUM AND MAG NESIUM PROTOCOLS. HIS HOME MEDICATIONS WERE RESUMED. HOME MEDICATIONS INCLUDE THE FOLLOWING: HYZAAR 50/12.5 DAILY, GLUCOPHAGE 1000MG BID, LOPRESSOR 12.5MG BID, CRESTOR 5MG DAILY. , GENERAL SURGEON, CONTINUES TO FOLLOW PATIENT. WE WILL CONTINUE WITH CURRENT PLAN OF CARE TODAY. OTHERWISE, WE WILL FOLLOW UP WITH AM LABS AND KUB AND CONTINUE TO MONITOR. TIME SPENT ON CLINICAL ASSESSMENT, REVIEWING LABS AND IMAGING, DECISION MAKING, AND DOCUMENTATION GREATER THAN 45 MINUTES. - Past Medical Family Social History Past Med/Fam/Surg Hx: No changes since H&P Allergies: Allergies aspirin Allergy (Verified 02/06/23 10:43) Sulfa (Sulfonamide Antibiotics) [SULFA] Allergy (Verified 02/06/23 10:43) - Review of Systems ROS: No change since H&P - Vital Signs and I&O's Vital Signs: Temperature 98.1 F Pulse Rate [Left] 64 Pulse Rate 112 Respiratory Rate 18 Blood Pressure [Left Arm] 165/74 Blood Pressure 156/76 O2 Sat by Pulse Oximetry 96 Intake and Output: Intake & Output 02/12/23 02/13/23 02/14/23 02/15/23 11:59 11:59 11:59 11:59 Intake Total 2250 / 2250 2841 / 2841 3041 / 3041 540 / 540 Output Total 2225 / 2225 1755 / 1755 550 / 550 Balance 1086 / 1086 2491 / 2491 540 / 540 - Physical Exam Oriented: Normal, Time, Person, Place Eyes: Normal Ear: Normal Nose: Normal Throat: Normal Respiratory: Normal Cardiovascular: Normal : Normal Auscultation: Bowel Sounds: Decreased Palpation: Normal Tenderness: Diffuse, Epigastric (dressing intact) Skin: Normal Musculoskeletal: Normal Psychiatric: Normal Mood Description: Calm Affect: Normal Speech Pattern: Clear, Appropriate - Laboratory and Diagnostics Result Diagrams: 02/14/23 05:25 02/14/23 05:25 Labs: 02/08/23 14:15 Peritoneal Fluid Wound Gram Stain - Final 02/08/23 14:15 Peritoneal Fluid Wound Culture - Final Laboratory WBC 7.3 X10^3/uL (3.6-10.0) 02/14/23 05:25 RBC 4.66 X10^6/uL (4.7-6.0) L 02/14/23 05:25 Hgb 12.6 g/dL (13.5-18.0) L 02/14/23 05:25 Hct 37.7 % (42.0-54.0) L 02/14/23 05:25 MCV 80.9 fL (80.0-100.0) 02/14/23 05:25 MCH 27.1 pg (27.0-34.0) 02/14/23 05:25 MCHC 33.5 g/dL (33.0-35.0) 02/14/23 05:25 RDW 15.1 % (11.6-16.5) 02/14/23 05:25 Plt Count 179 X10^3/uL (150.0-450.0) 02/14/23 05:25 Plt Count Comment Adequate (ADEQUATE) 02/13/23 05:20 MPV 9.1 fL (7.4-11.0) 02/14/23 05:25 Neut % (Auto) 83.2 % (42.0-75.0) H 02/14/23 05:25 Lymph % (Auto) 8.0 % (21.0-51.0) L 02/14/23 05:25 [place] % (Auto) 7.9 % (0.0-13.0) 02/14/23 05:25 Eos % (Auto) 0.6 % (0.9-2.9) L 02/14/23 05:25 Baso % (Auto) 0.3 % (0.2-1.0) 02/14/23 05:25 Neut # (Auto) 6.1 x10^3/uL (2.2-4.8) H 02/14/23 05:25 Lymph # (Auto) 0.6 X10^3/uL (1.3-2.9) L 02/14/23 05:25 [place] # (Auto) 0.6 x10^3/uL (0.3-0.8) 02/14/23 05:25 Eos # (Auto) 0.0 x10^3/uL (0.0-0.2) 02/14/23 05:25 Baso # (Auto) 0.0 X10^3/uL (0.0-0.1) 02/14/23 05:25 Absolute Nucleated RBC 0.0 /100WBC 02/14/23 05:25 Total Counted 100 02/13/23 05:20 Neutrophils % (Manual) 50 % (39-76) 02/13/23 05:20 Band Neutrophils % 40 % (0-10) H 02/13/23 05:20 Lymphocytes % (Manual) 7 % (13-43) L 02/13/23 05:20 Monocytes % (Manual) 2 % (4-9) L 02/13/23 05:20 Eosinophils % (Manual) 1 % (0-6) 02/13/23 05:20 Plt Morphology Comment Normal (NORMAL) 02/13/23 05:20 RBC Morphology Normal (NORMAL) 02/13/23 05:20 Sodium 140 mmol/L (136-145) 02/14/23 05:25 Corrected Sodium 141 mmol/L (136-145) 02/14/23 05:25 Potassium 3.9 mmol/L (3.5-5.1) 02/14/23 05:25 Chloride 105 mmol/L (98-107) 02/14/23 05:25 Carbon Dioxide 29.0 mmol/L (21-32) 02/14/23 05:25 BUN 17 mg/dL (7-18) 02/14/23 05:25 Creatinine 1.07 mg/dL (0.70-1.30) 02/14/23 05:25 Est GFR (MDRD) Af Amer > 60 (>60) 02/14/23 05:25 Est GFR (MDRD) Non-Af > 60 (>60) 02/14/23 05:25 Glucose 140 mg/dL (65-99) H 02/14/23 05:25 POC Glucose (mg/dL) 119 mg/dL (65-99) H 02/14/23 20:08 Calcium 8.2 mg/dL (8.5-10.1) L 02/14/23 05:25 Corrected Calcium 9.6 mg/dL (8.5-10.1) 02/14/23 05:25 Total Bilirubin 0.90 mg/dL (0.2-1.0) 02/14/23 05:25 AST 28 Units/L (15-37) 02/14/23 05:25 ALT 88 Units/L (12-78) H 02/14/23 05:25 Alkaline Phosphatase 63 Units/L (46-116) 02/14/23 05:25 Troponin I High Sens 12.1 ng/L (4.0-60.0) 02/06/23 10:52 Total Protein 5.8 g/dL (6.4-8.2) L 02/14/23 05:25 Albumin 2.3 g/dL (3.4-5.0) L 02/14/23 05:25 Globulin 3.5 g/dL (2.5-4.5) 02/14/23 05:25 Albumin/Globulin Ratio 0.7 Ratio (1.1-2.1) L 02/14/23 05:25 Amylase 206 Units/L (25-115) H 02/12/23 05:26 Lipase 1507 Units/L (73-393) H 02/12/23 05:26 Specimen Type Clean catch urine 02/06/23 12:10 Urine Color Dark yellow (YELLOW) 02/06/23 12:10 Urine Appearance Clear (CLEAR) 02/06/23 12:10 Urine pH 5.0 (5.0 - 8.0) 02/06/23 12:10 Ur Specific [place] 1.025 (1.000-1.030) 02/06/23 12:10 Urine Protein 2+ (NEGATIVE) 02/06/23 12:10 Urine Glucose (UA) 1+ (NEGATIVE) 02/06/23 12:10 Urine Ketones Negative (NEGATIVE) 02/06/23 12:10 Urine Blood 1+ (NEGATIVE) 02/06/23 12:10 Urine Nitrite Negative (NEGATIVE) 02/06/23 12:10 Urine Bilirubin 1+ (NEGATIVE) 02/06/23 12:10 Urine Urobilinogen Normal (NORMAL) 02/06/23 12:10 Ur Leukocyte Esterase Negative (NEGATIVE) 02/06/23 12:10 Urine RBC 0-2 /HPF (0-3) 02/06/23 12:10 Urine WBC 0-2 /HPF (0-5) 02/06/23 12:10 Ur Squamous Epith Cells Rare /HPF (NEGATIVE) 02/06/23 12:10 Urine Bacteria Trace /HPF (NEGATIVE) 02/06/23 12:10 Hyaline Casts Few /LPF (NEGATIVE) 02/06/23 12:10 Urine Mucus Few /HPF (NEGATIVE) 02/06/23 12:10 Ur Culture Indicated? No/not indicated 02/06/23 12:10 Tissue Pathology See comment. 02/08/23 14:30 - Plan (1) Small bowel obstruction Status: Acute Plan: DILAUDID 1MG IV Q2H PRN, OTBS ACHS, HUMULIN R SLIDING SCALE, ZOFRAN 4MG IV Q6H PRN, PROTONIX 40MG IV DAILY, AND THE POTASSIUM AND MAGNESIUM PROTOCOLS. CONTINUE HOME MEDS (2) Acute pancreatitis Status: Acute Qualifiers: Pancreatitis type: unspecified pancreatitis type Acute pancreatitis complication: unspecified Qualified Code(s): K85.90 - Acute pancreatitis without necrosis or infection, unspecified (3) Status post appendectomy Status: Acute (4) Status post laparotomy Status: Acute (5) Acute kidney injury Status: Acute (6) Dehydration Status: Acute (7) Hyponatremia Status: Acute (8) HTN (hypertension) Status: Chronic Qualifiers: Hypertension type: primary hypertension Qualified Code(s): I10 - Essential (primary) hypertension (9) DM II (diabetes mellitus, type II), controlled Status: Chronic Qualifiers: Diabetes mellitus terminal carman insulin use: with terminal carman use Diabetes mellitus complication status: with hyperglycemia Qualified Code(s): E11.65 - Type 2 diabetes mellitus with hyperglycemia; Z79.4 - care home (current) use of insulin (10) GERD (gastroesophageal reflux disease) Status: Chronic Qualifiers: Esophagitis presence: esophagitis presence not specified Qualified Code(s): K21.9 - Gastro-esophageal reflux disease without esophagitis (11) CAD (coronary artery disease) Status: Chronic Qualifiers: Coronary Disease-Associated Artery/Lesion type: [place] artery [place] vs. transplanted heart: ruby heart (12) Dyslipidemia Status: Chronic
[2023-02-15] MEDS: ZOFRAN INJ 4 MG VIAL IVP PRN (02:25)
[2023-02-15 06:09] LABS: BASOPHILS % (AUTO) 0.2 % (0.2-1.0); EOSINOPHILS % (AUTO) 0.4 % (0.9-2.9); HEMATOCRIT 38.9 % (42.0-54.0); HEMOGLOBIN 13.1 g/dL (13.5-18.0); LYMPHOCYTES # (AUTO) 0.6 X10^3/uL (1.3-2.9); LYMPHOCYTES % (AUTO) 6.8 % (21.0-51.0); MEAN CORPUSCULAR HEMOGLOBIN 27.1 pg (27.0-34.0); MEAN CORPUSCULAR HGB CONC 33.7 g/dL (33.0-35.0); MEAN CORPUSCULAR VOLUME 80.2 fL (80.0-100.0); MEAN PLATELET VOLUME 8.9 fL (7.4-11.0); MONOCYTES # (AUTO) 0.6 x10^3/uL (0.3-0.8); MONOCYTES % (AUTO) 6.9 % (0.0-13.0); NEUTROPHILS # (AUTO) 7.7 x10^3/uL (2.2-4.8); NEUTROPHILS % (AUTO) 85.7 % (42.0-75.0); PLATELET COUNT 222 X10^3/uL (150.0-450.0); RED BLOOD COUNT 4.85 X10^6/uL (4.7-6.0); RED CELL DISTRIBUTION WIDTH 14.9 % (11.6-16.5)
[2023-02-15 06:20] LABS: ALANINE AMINOTRANSFERASE 73 Units/L (12-78); ALBUMIN 2.5 g/dL (3.4-5.0); ALKALINE PHOSPHATASE 70 Units/L (46-116); ASPARTATE AMINO TRANSFERASE 20 Units/L (15-37); BLOOD UREA NITROGEN 15 mg/dL (7-18); CALCIUM 8.7 mg/dL (8.5-10.1); CARBON DIOXIDE 27.8 mmol/L (21-32); CHLORIDE 104 mmol/L (98-107); COR CA(FOR HYPOALB) 9.9 mg/dL (8.5-10.1); CREATININE 1.01 mg/dL (0.70-1.30); GLUCOSE 93 mg/dL (65-99); POTASSIUM 3.8 mmol/L (3.5-5.1); SODIUM 138 mmol/L (136-145); TOTAL PROTEIN 6.3 g/dL (6.4-8.2); eGFR NON BLACK RACES > 60 (>60)
[2023-02-15] MEDS ORDERED: GLUCOPHAGE ONE ×2 (08:06→19:11)
[2023-02-15] MEDS: HYZAAR 50/12.5 MG PO SCH (08:31)
[2023-02-15] MEDS: PROTONIX INJ 40 MG VIAL IVP SCH (08:31)
[2023-02-15] MEDS: CRESTOR TAB 10 MG PO SCH (08:32)
[2023-02-15] MEDS: GLUCOPHAGE PO SCH ×2 (08:32→20:25)
[2023-02-15] MEDS: LOPRESSOR TAB 25 MG PO SCH ×2 (08:32→20:25)
--- NOTE | 2023-02-15 10:20 | NOTE.SOAP ---
Soap Note Note for Day of Date of Exam: 02/14/23 Subjective Data Subjective Data: Tolerating clear liquids. Has had 2 BMs in last 24 hours. Objective Data Temperature: 98 F Pulse Rate: 56 Respiratory Rate: 18 Blood Pressure: 137/66 O2 Sat by Pulse Oximetry: 99 Objective Data: Abdomen mildly distended . Aqua cell dressing removed.Small amount of bloody drainage on the wound dressing , but the wound itself is not red and has no drainage. Assessment Assessment: SBO, resolved Plan Plan: Heparin lock IVFs, advance to regular diet .
--- NOTE | 2023-02-15 14:15 | RAD ---
HISTORYSBO abdomen painSTUDYKUBCOMPARISONMay 2022FINDINGSModerately severe gaseous distension of bowel, primarily small intestine, although some colon gas is present. There is no mass formation or visceral enlargement although the intestinal distention obscures detail.IMPRESSIONPersistent intestinal distention, appearance of which is consistent with ileus or partial SBO.Electronically signed by: BUSTER WILKINSON (February 15, 2023 14:14:03)
--- NOTE | 2023-02-16 00:32 | PCM.PROG ---
Progress Note - Progress Note for Day of Date of Exam: 02/14/23 - Subjective Subjective: IS A 67 YEAR OLD PATIENT OF OURS WITH HX OF CAD, DYSLIPIDEMIA, GERD, HTN, TYPE 2 DIABETES, PROSTATE CANCER, HERNIA REPAIR, CHOLECYSTECTOMY, AND CARDIAC STENTS. HE IS CURRENTLY INPATIENT STATUS FOR TREATMENT OF SMALL BOWEL OBSTRUCTION, ACUTE KIDNEY INJURY, DEHYDRATION, AND HYPONATREMIA. HE IS STATUS POST LAPAROTOMY AND APPENDECTOMY PER . HE REPORTS SLIGHT IMPROVEMENT IN EPIGASTRIC PAIN AND NAUSEA THIS MORNING. HE NO LONGER HAS AN NG TUBE. HE HAS BEEN ON A CLEAR LIQUID DIET, BUT REPORTS VOMITING THIS MORNING. HE ADMITS TO HAVING TWO BOWEL MOVEMENTS WITHIN THE LAST 24 HOURS. ON EXAMINATION, HEART IS REGULAR IN RATE AND RHYTHM. BILATERAL LUNGS ARE NOTED WITH DIMINISHED LUNG SOUNDS THROUGHOUT. ABDOMEN IS SLIGHTLY DISTENDED AND NOTED WITH DIFFUSE TENDERNESS TO PALPATION. ABDOMINAL DRESSING IS DRY AND INTACT. HYPOACTIVE BOWEL SOUNDS NOTED. GOOD MOVEMENT NOTED TO UPPER AND LOWER EXTREMITIES. TRACE EDEMA NOTED TO LOWER EXTREMITIES. HIS VITALS THIS MORNING ARE: 97.6-62-18-97%-165/71. HE IS ON ROOM AIR. LABS WERE OBTAINED. WBC 7.3, RBC 4.66, HGB 12.6, HCT 37.7, PLT COUNT 179, SODIUM 140, POTASSIUM 3.9, CHLORIDE 105, BUN 17, CREATININE 1.07, GLUCOSE 140, CALCIUM 8.2, AST 28, ALT 88, ALK PHOS 63, TOTAL PROTEIN 5.8, ALBUMIN 2.3. PERITONEAL FLUID CULTURES ARE PENDING. HE IS CURRENTLY RECEIVING DILAUDID 1MG IV Q2H PRN, OTBS ACHS, HUMULIN R SLIDING SCALE, ZOFRAN 4MG IV Q6H PRN, PROTONIX 40MG IV DAILY, AND THE POTASSIUM AND MAGNESIUM PROTOCOLS. HIS HOME MEDICATIONS WERE RESUMED. HOME MEDICATIONS INCLUDE THE FOLLOWING: HYZAAR 50/12.5 DAILY, GLUCOPHAGE 1000MG BID, LOPRESSOR 12.5MG BID, CRESTOR 5MG DAILY. , GENERAL SURGEON, CONTINUES TO FOLLOW PATIENT. WE WILL CONTINUE WITH CURRENT PLAN OF CARE TODAY. OTHERWISE, WE WILL FOLLOW UP WITH AM LABS AND KUB AND CONTINUE TO MONITOR. TIME SPENT ON CLINICAL ASSESSMENT, REVIEWING LABS AND IMAGING, DECISION MAKING, AND DOCUMENTATION GREATER THAN 45 MINUTES. - Past Medical Family Social History Past Med/Fam/Surg Hx: No changes since H&P Allergies: Allergies aspirin Allergy (Verified 02/06/23 10:43) Sulfa (Sulfonamide Antibiotics) [SULFA] Allergy (Verified 02/06/23 10:43) - Review of Systems ROS: No change since H&P - Vital Signs and I&O's Vital Signs: Temperature 98.5 F Pulse Rate [Left] 69 Pulse Rate 74 Respiratory Rate 20 Blood Pressure [Left Arm] 161/74 Blood Pressure 126/70 O2 Sat by Pulse Oximetry 98 Intake and Output: Intake & Output 02/13/23 02/14/23 02/15/23 02/16/23 11:59 11:59 11:59 11:59 Intake Total 2841 / 2841 3041 / 3041 1575 / 1575 520 / 520 Output Total 1755 / 1755 550 / 550 Balance 1086 / 1086 2491 / 2491 1575 / 1575 520 / 520 - Physical Exam Oriented: Normal, Time, Person, Place Eyes: Normal Ear: Normal Nose: Normal Throat: Normal Respiratory: Normal Cardiovascular: Normal : Normal Auscultation: Bowel Sounds: Decreased Palpation: Normal Tenderness: Diffuse, Epigastric (dressing intact) Skin: Normal Musculoskeletal: Normal Psychiatric: Normal Mood Description: Calm Affect: Normal Speech Pattern: Clear, Appropriate - Laboratory and Diagnostics Result Diagrams: 02/15/23 05:15 02/15/23 05:15 Labs: 02/08/23 14:15 Peritoneal Fluid Wound Gram Stain - Final 02/08/23 14:15 Peritoneal Fluid Wound Culture - Final Laboratory WBC 9.0 X10^3/uL (3.6-10.0) 02/15/23 05:15 RBC 4.85 X10^6/uL (4.7-6.0) 02/15/23 05:15 Hgb 13.1 g/dL (13.5-18.0) L 02/15/23 05:15 Hct 38.9 % (42.0-54.0) L 02/15/23 05:15 MCV 80.2 fL (80.0-100.0) 02/15/23 05:15 MCH 27.1 pg (27.0-34.0) 02/15/23 05:15 MCHC 33.7 g/dL (33.0-35.0) 02/15/23 05:15 RDW 14.9 % (11.6-16.5) 02/15/23 05:15 Plt Count 222 X10^3/uL (150.0-450.0) 02/15/23 05:15 Plt Count Comment Adequate (ADEQUATE) 02/13/23 05:20 MPV 8.9 fL (7.4-11.0) 02/15/23 05:15 Neut % (Auto) 85.7 % (42.0-75.0) H 02/15/23 05:15 Lymph % (Auto) 6.8 % (21.0-51.0) L 02/15/23 05:15 [place] % (Auto) 6.9 % (0.0-13.0) 02/15/23 05:15 Eos % (Auto) 0.4 % (0.9-2.9) L 02/15/23 05:15 Baso % (Auto) 0.2 % (0.2-1.0) 02/15/23 05:15 Neut # (Auto) 7.7 x10^3/uL (2.2-4.8) H 02/15/23 05:15 Lymph # (Auto) 0.6 X10^3/uL (1.3-2.9) L 02/15/23 05:15 [place] # (Auto) 0.6 x10^3/uL (0.3-0.8) 02/15/23 05:15 Eos # (Auto) 0.0 x10^3/uL (0.0-0.2) 02/15/23 05:15 Baso # (Auto) 0.0 X10^3/uL (0.0-0.1) 02/15/23 05:15 Absolute Nucleated RBC 0.0 /100WBC 02/15/23 05:15 Total Counted 100 02/13/23 05:20 Neutrophils % (Manual) 50 % (39-76) 02/13/23 05:20 Band Neutrophils % 40 % (0-10) H 02/13/23 05:20 Lymphocytes % (Manual) 7 % (13-43) L 02/13/23 05:20 Monocytes % (Manual) 2 % (4-9) L 02/13/23 05:20 Eosinophils % (Manual) 1 % (0-6) 02/13/23 05:20 Plt Morphology Comment Normal (NORMAL) 02/13/23 05:20 RBC Morphology Normal (NORMAL) 02/13/23 05:20 Sodium 138 mmol/L (136-145) 02/15/23 05:15 Corrected Sodium TNP 02/15/23 05:15 Potassium 3.8 mmol/L (3.5-5.1) 02/15/23 05:15 Chloride 104 mmol/L (98-107) 02/15/23 05:15 Carbon Dioxide 27.8 mmol/L (21-32) 02/15/23 05:15 BUN 15 mg/dL (7-18) 02/15/23 05:15 Creatinine 1.01 mg/dL (0.70-1.30) 02/15/23 05:15 Est GFR (MDRD) Af Amer > 60 (>60) 02/15/23 05:15 Est GFR (MDRD) Non-Af > 60 (>60) 02/15/23 05:15 Glucose 93 mg/dL (65-99) 02/15/23 05:15 POC Glucose (mg/dL) 108 mg/dL (65-99) H 02/15/23 19:27 Calcium 8.7 mg/dL (8.5-10.1) 02/15/23 05:15 Corrected Calcium 9.9 mg/dL (8.5-10.1) 02/15/23 05:15 Total Bilirubin 0.80 mg/dL (0.2-1.0) 02/15/23 05:15 AST 20 Units/L (15-37) 02/15/23 05:15 ALT 73 Units/L (12-78) 02/15/23 05:15 Alkaline Phosphatase 70 Units/L (46-116) 02/15/23 05:15 Troponin I High Sens 12.1 ng/L (4.0-60.0) 02/06/23 10:52 Total Protein 6.3 g/dL (6.4-8.2) L 02/15/23 05:15 Albumin 2.5 g/dL (3.4-5.0) L 02/15/23 05:15 Globulin 3.8 g/dL (2.5-4.5) 02/15/23 05:15 Albumin/Globulin Ratio 0.7 Ratio (1.1-2.1) L 02/15/23 05:15 Amylase 206 Units/L (25-115) H 02/12/23 05:26 Lipase 1507 Units/L (73-393) H 02/12/23 05:26 Specimen Type Clean catch urine 02/06/23 12:10 Urine Color Dark yellow (YELLOW) 02/06/23 12:10 Urine Appearance Clear (CLEAR) 02/06/23 12:10 Urine pH 5.0 (5.0 - 8.0) 02/06/23 12:10 Ur Specific [place] 1.025 (1.000-1.030) 02/06/23 12:10 Urine Protein 2+ (NEGATIVE) 02/06/23 12:10 Urine Glucose (UA) 1+ (NEGATIVE) 02/06/23 12:10 Urine Ketones Negative (NEGATIVE) 02/06/23 12:10 Urine Blood 1+ (NEGATIVE) 02/06/23 12:10 Urine Nitrite Negative (NEGATIVE) 02/06/23 12:10 Urine Bilirubin 1+ (NEGATIVE) 02/06/23 12:10 Urine Urobilinogen Normal (NORMAL) 02/06/23 12:10 Ur Leukocyte Esterase Negative (NEGATIVE) 02/06/23 12:10 Urine RBC 0-2 /HPF (0-3) 02/06/23 12:10 Urine WBC 0-2 /HPF (0-5) 02/06/23 12:10 Ur Squamous Epith Cells Rare /HPF (NEGATIVE) 02/06/23 12:10 Urine Bacteria Trace /HPF (NEGATIVE) 02/06/23 12:10 Hyaline Casts Few /LPF (NEGATIVE) 02/06/23 12:10 Urine Mucus Few /HPF (NEGATIVE) 02/06/23 12:10 Ur Culture Indicated? No/not indicated 02/06/23 12:10 Tissue Pathology See comment. 02/08/23 14:30 - Plan (1) Small bowel obstruction Status: Acute Plan: DILAUDID 1MG IV Q2H PRN, OTBS ACHS, HUMULIN R SLIDING SCALE, ZOFRAN 4MG IV Q6H PRN, PROTONIX 40MG IV DAILY, AND THE POTASSIUM AND MAGNESIUM PROTOCOLS. CONTINUE HOME MEDS (2) Acute pancreatitis Status: Acute Qualifiers: Pancreatitis type: unspecified pancreatitis type Acute pancreatitis complication: unspecified Qualified Code(s): K85.90 - Acute pancreatitis without necrosis or infection, unspecified (3) Status post appendectomy Status: Acute (4) Status post laparotomy Status: Acute (5) Acute kidney injury Status: Acute (6) Dehydration Status: Acute (7) Hyponatremia Status: Acute (8) HTN (hypertension) Status: Chronic Qualifiers: Hypertension type: primary hypertension Qualified Code(s): I10 - Essential (primary) hypertension (9) DM II (diabetes mellitus, type II), controlled Status: Chronic Qualifiers: Diabetes mellitus termite treater insulin use: with mcc use Diabetes mellitus complication status: with hyperglycemia Qualified Code(s): E11.65 - Type 2 diabetes mellitus with hyperglycemia; Z79.4 - jail (current) use of insulin (10) GERD (gastroesophageal reflux disease) Status: Chronic Qualifiers: Esophagitis presence: esophagitis presence not specified Qualified Code(s): K21.9 - Gastro-esophageal reflux disease without esophagitis (11) CAD (coronary artery disease) Status: Chronic Qualifiers: Coronary Disease-Associated Artery/Lesion type: [place] artery [place] vs. transplanted heart: [place] heart (12) Dyslipidemia Status: Chronic
[2023-02-16 06:22] LABS: BASOPHILS % (AUTO) 0.5 % (0.2-1.0); EOSINOPHILS # (AUTO) 0.1 x10^3/uL (0.0-0.2); EOSINOPHILS % (AUTO) 0.8 % (0.9-2.9); HEMATOCRIT 37.8 % (42.0-54.0); HEMOGLOBIN 12.8 g/dL (13.5-18.0); LYMPHOCYTES # (AUTO) 0.8 X10^3/uL (1.3-2.9); LYMPHOCYTES % (AUTO) 10.1 % (21.0-51.0); MEAN CORPUSCULAR HGB CONC 33.8 g/dL (33.0-35.0); MEAN CORPUSCULAR VOLUME 79.8 fL (80.0-100.0); MEAN PLATELET VOLUME 8.9 fL (7.4-11.0); MONOCYTES # (AUTO) 0.7 x10^3/uL (0.3-0.8); MONOCYTES % (AUTO) 9.7 % (0.0-13.0); NEUTROPHILS # (AUTO) 5.9 x10^3/uL (2.2-4.8); NEUTROPHILS % (AUTO) 78.9 % (42.0-75.0); PLATELET COUNT 240 X10^3/uL (150.0-450.0); RED BLOOD COUNT 4.74 X10^6/uL (4.7-6.0); RED CELL DISTRIBUTION WIDTH 15.2 % (11.6-16.5); WHITE BLOOD COUNT 7.5 X10^3/uL (3.6-10.0)
[2023-02-16 06:31] LABS: ALANINE AMINOTRANSFERASE 56 Units/L (12-78); ALBUMIN 2.5 g/dL (3.4-5.0); ALKALINE PHOSPHATASE 67 Units/L (46-116); ASPARTATE AMINO TRANSFERASE 20 Units/L (15-37); BLOOD UREA NITROGEN 14 mg/dL (7-18); CALCIUM 8.3 mg/dL (8.5-10.1); CARBON DIOXIDE 24.9 mmol/L (21-32); CHLORIDE 104 mmol/L (98-107); COR CA(FOR HYPOALB) 9.5 mg/dL (8.5-10.1); CREATININE 0.96 mg/dL (0.70-1.30); GLUCOSE 92 mg/dL (65-99); POTASSIUM 3.5 mmol/L (3.5-5.1); SODIUM 137 mmol/L (136-145); TOTAL PROTEIN 6.1 g/dL (6.4-8.2); eGFR NON BLACK RACES > 60 (>60)
[2023-02-16] MEDS ORDERED: GLUCOPHAGE ONE ×2 (09:00→20:09)
[2023-02-16] MEDS: HYZAAR 50/12.5 MG PO SCH (09:06)
[2023-02-16] MEDS: CRESTOR TAB 10 MG PO SCH (09:07)
[2023-02-16] MEDS: GLUCOPHAGE PO SCH ×2 (09:07→20:46)
[2023-02-16] MEDS: LOPRESSOR TAB 25 MG PO SCH ×2 (09:07→20:46)
[2023-02-16] MEDS: PROTONIX INJ 40 MG VIAL IVP SCH (09:07)
--- NOTE | 2023-02-16 18:06 | PCM.PROG ---
Progress Note Progress Note for Day of Date of Exam: 02/16/23 Subjective Subjective: Saturday, 16 Feb 2023 Patient is lying in bed comfortably this morning. He has no new complaints today. Vital signs stable this morning. Overall his labs look within normal limits for him I do see his calcium is low so we will check a vitamin D level. Repeat routine labs in a.m. IS A 67 YEAR OLD PATIENT OF OURS WITH HX OF CAD, DYSLIPIDEMIA, GERD, HTN, TYPE 2 DIABETES, PROSTATE CANCER, HERNIA REPAIR, CHOLECYSTECTOMY, AND CARDIAC STENTS. HE IS CURRENTLY INPATIENT STATUS FOR TREATMENT OF SMALL BOWEL OBSTRUCTION, ACUTE KIDNEY INJURY, DEHYDRATION, AND HYPONATREMIA. HE IS STATUS POST LAPAROTOMY AND APPENDECTOMY PER . HE REPORTS SLIGHT IMPROVEMENT IN EPIGASTRIC PAIN AND NAUSEA THIS MORNING. HE NO LONGER HAS AN NG TUBE. HE HAS BEEN ON A CLEAR LIQUID DIET, BUT REPORTS VOMITING THIS MORNING. HE ADMITS TO HAVING TWO BOWEL MOVEMENTS WITHIN THE LAST 24 HOURS. ON EXAMINATION, HEART IS REGULAR IN RATE AND RHYTHM. BILATERAL LUNGS ARE NOTED WITH DIMINISHED LUNG KAREN NDS THROUGHOUT. ABDOMEN IS SLIGHTLY DISTENDED AND NOTED WITH DIFFUSE TENDERNESS TO PALPATION. ABDOMINAL DRESSING IS DRY AND INTACT. HYPOACTIVE BOWEL SOUNDS NOTED. GOOD MOVEMENT NOTED TO UPPER AND LOWER EXTREMITIES. TRACE EDEMA NOTED TO LOWER EXTREMITIES. HIS VITALS THIS MORNING ARE: 97.6-62-18-97%-165/71. HE IS ON ROOM AIR. LABS WERE OBTAINED. WBC 7.3, RBC 4.66, HGB 12.6, HCT 37.7, PLT COUNT 179, SODIUM 140, POTASSIUM 3.9, CHLORIDE 105, BUN 17, CREATININE 1.07, GLUCOSE 140, CALCIUM 8.2, AST 28, ALT 88, ALK PHOS 63, TOTAL PROTEIN 5.8, ALBUMIN 2.3. PERITONEAL FLUID CULTURES ARE PENDING. HE IS CURRENTLY RECEIVING DILAUDID 1MG IV Q2H PRN, OTBS ACHS, HUMULIN R SLIDING SCALE, ZOFRAN 4MG IV Q6H PRN, PROTONIX 40MG IV DAILY, AND THE POTASSIUM AND MAGNESIUM PROTOCOLS. HIS HOME MEDICATIONS WERE RESUMED. HOME MEDICATIONS INCLUDE THE FOLLOWING: HYZAAR 50/12.5 DAILY, GLUCOPHAGE 1000MG BID, LOPRESSOR 12.5MG BID, CRESTOR 5MG DAILY. , GENERAL SURGEON, CONTINUES TO FOLLOW PATIENT. WE WILL CONTINUE WITH CURRENT PLAN OF CARE TODAY. OTHERWISE, WE WILL FOLLOW UP WITH AM LABS AND KUB AND CONTINUE TO MONITOR. TIME SPENT ON CLINICAL ASSESSMENT, REVIEWING LABS AND IMAGING, DECISION MAKING, AND DOCUMENTATION GREATER THAN 45 MINUTES. Past Medical Family Social History Past Med/Fam/Surg Hx: No changes since H&P Allergies: Allergies aspirin Allergy (Verified 02/06/23 10:43) Sulfa (Sulfonamide Antibiotics) [SULFA] Allergy (Verified 02/06/23 10:43) Review of Systems ROS: No change since H&P Vital Signs and I&O's Vital Signs: Temperature 97.8 F Pulse Rate [Left] 65 Pulse Rate 74 Respiratory Rate 20 Blood Pressure [Left Arm] 162/77 Blood Pressure 126/70 O2 Sat by Pulse Oximetry 98 Intake and Output: Intake & Output 02/14/23 02/15/23 02/16/23 02/17/23 11:59 11:59 11:59 11:59 Intake Total 3041 / 3041 1575 / 1575 1490 / 1490 1080 / 1080 Output Total 550 / 550 Balance 2491 / 2491 1575 / 1575 1490 / 1490 1080 / 1080 Physical Exam Oriented: Normal, Time, Person and Place Eyes: Normal Ear: Normal Nose: Normal Throat: Normal Respiratory: Normal Cardiovascular: Normal : Normal Auscultation: Bowel Sounds: Decreased Tenderness: Diffuse and Epigastric (dressing intact ) Skin: Normal Musculoskeletal: Normal Psychiatric: Normal Mood Description: Calm Affect: Normal Speech Pattern: Clear and Appropriate Laboratory and Diagnostics Result Diagrams: 02/16/23 05:17 02/16/23 05:17 Labs: 02/08/23 14:15 Peritoneal Fluid Wound Gram Stain - Final 02/08/23 14:15 Peritoneal Fluid Wound Culture - Final Laboratory WBC 7.5 X10^3/uL (3.6-10.0) 02/16/23 05:17 RBC 4.74 X10^6/uL (4.7-6.0) 02/16/23 05:17 Hgb 12.8 g/dL (13.5-18.0) L 02/16/23 05:17 Hct 37.8 % (42.0-54.0) L 02/16/23 05:17 MCV 79.8 fL (80.0-100.0) L 02/16/23 05:17 MCH 27.0 pg (27.0-34.0) 05/13/23 05:17 MCHC 33.8 g/dL (33.0-35.0) 02/16/23 05:17 RDW 15.2 % (11.6-16.5) 02/16/23 05:17 Plt Count 240 X10^3/uL (150.0-450.0) 02/16/23 05:17 Plt Count Comment Adequate (ADEQUATE) 02/13/23 05:20 MPV 8.9 fL (7.4-11.0) 02/16/23 05:17 Neut % (Auto) 78.9 % (42.0-75.0) H 02/16/23 05:17 Lymph % (Auto) 10.1 % (21.0-51.0) L 02/16/23 05:17 [place] % (Auto) 9.7 % (0.0-13.0) 02/16/23 05:17 Eos % (Auto) 0.8 % (0.9-2.9) L 02/16/23 05:17 Baso % (Auto) 0.5 % (0.2-1.0) 02/16/23 05:17 Neut # (Auto) 5.9 x10^3/uL (2.2-4.8) H 02/16/23 05:17 Lymph # (Auto) 0.8 X10^3/uL (1.3-2.9) L 02/16/23 05:17 [place] # (Auto) 0.7 x10^3/uL (0.3-0.8) 02/16/23 05:17 Eos # (Auto) 0.1 x10^3/uL (0.0-0.2) 02/16/23 05:17 Baso # (Auto) 0.0 X10^3/uL (0.0-0.1) 02/16/23 05:17 Absolute Nucleated RBC 0.0 /100WBC 02/16/23 05:17 Total Counted 100 02/13/23 05:20 Neutrophils % (Manual) 50 % (39-76) 02/13/23 05:20 Band Neutrophils % 40 % (0-10) H 02/13/23 05:20 Lymphocytes % (Manual) 7 % (13-43) L 02/13/23 05:20 Monocytes % (Manual) 2 % (4-9) L 02/13/23 05:20 Eosinophils % (Manual) 1 % (0-6) 02/13/23 05:20 Plt Morphology Comment Normal (NORMAL) 02/13/23 05:20 RBC Morphology Normal (NORMAL) 02/13/23 05:20 Sodium 137 mmol/L (136-145) 02/16/23 05:17 Corrected Sodium TNP 02/16/23 05:17 Potassium 3.5 mmol/L (3.5-5.1) 02/16/23 05:17 Chloride 104 mmol/L (98-107) 02/16/23 05:17 Carbon Dioxide 24.9 mmol/L (21-32) 02/16/23 05:17 BUN 14 mg/dL (7-18) 02/16/23 05:17 Creatinine 0.96 mg/dL (0.70-1.30) 02/16/23 05:17 Est GFR (MDRD) Af Amer > 60 (>60) 02/16/23 05:17 Est GFR (MDRD) Non-Af > 60 (>60) 02/16/23 05:17 Glucose 92 mg/dL (65-99) 02/16/23 05:17 POC Glucose (mg/dL) 93 mg/dL (65-99) 02/16/23 16:45 Calcium 8.3 mg/dL (8.5-10.1) L 02/16/23 05:17 Corrected Calcium 9.5 mg/dL (8.5-10.1) 02/16/23 05:17 Total Bilirubin 0.60 mg/dL (0.2-1.0) 02/16/23 05:17 AST 20 Units/L (15-37) 02/16/23 05:17 ALT 56 Units/L (12-78) 02/16/23 05:17 Alkaline Phosphatase 67 Units/L (46-116) 02/16/23 05:17 Troponin I High Sens 12.1 ng/L (4.0-60.0) 02/06/23 10:52 Total Protein 6.1 g/dL (6.4-8.2) L 02/16/23 05:17 Albumin 2.5 g/dL (3.4-5.0) L 02/16/23 05:17 Globulin 3.6 g/dL (2.5-4.5) 02/16/23 05:17 Albumin/Globulin Ratio 0.7 Ratio (1.1-2.1) L 02/16/23 05:17 Amylase 206 Units/L (25-115) H 02/12/23 05:26 Lipase 1507 Units/L (73-393) H 02/12/23 05:26 Specimen Type Clean catch urine 02/06/23 12:10 Urine Color Dark yellow (YELLOW) 02/06/23 12:10 Urine Appearance Clear (CLEAR) 02/06/23 12:10 Urine pH 5.0 (5.0 - 8.0) 02/06/23 12:10 Ur Specific [place] 1.025 (1.000-1.030) 02/06/23 12:10 Urine Protein 2+ (NEGATIVE) 02/06/23 12:10 Urine Glucose (UA) 1+ (NEGATIVE) 02/06/23 12:10 Urine Ketones Negative (NEGATIVE) 02/06/23 12:10 Urine Blood 1+ (NEGATIVE) 02/06/23 12:10 Urine Nitrite Negative (NEGATIVE) 02/06/23 12:10 Urine Bilirubin 1+ (NEGATIVE) 02/06/23 12:10 Urine Urobilinogen Normal (NORMAL) 02/06/23 12:10 Ur Leukocyte Esterase Negative (NEGATIVE) 02/06/23 12:10 Urine RBC 0-2 /HPF (0-3) 02/06/23 12:10 Urine WBC 0-2 /HPF (0-5) 02/06/23 12:10 Ur Squamous Epith Cells Rare /HPF (NEGATIVE) 02/06/23 12:10 Urine Bacteria Trace /HPF (NEGATIVE) 02/06/23 12:10 Hyaline Casts Few /LPF (NEGATIVE) 02/06/23 12:10 Urine Mucus Few /HPF (NEGATIVE) 02/06/23 12:10 Ur Culture Indicated? No/not indicated 02/06/23 12:10 Tissue Pathology See comment. 02/08/23 14:30 Plan (1) Small bowel obstruction: Status: Acute Plan: DILAUDID 1MG IV Q2H PRN, OTBS ACHS, HUMULIN R SLIDING SCALE, ZOFRAN 4MG IV Q6H PRN, PROTONIX 40MG IV DAILY, AND THE POTASSIUM AND MAGNESIUM PROTOC OLS. CONTINUE HOME MEDS (2) Acute pancreatitis: Status: Acute Qualifiers: Acute pancreatitis complication: unspecified Pancreatitis type: unspec ified pancreatitis type Qualified Code(s): K85.90 - Acute pancreatitis without necrosis or infection, unspecified (3) Status post appendectomy: Status: Acute (4) Status post laparotomy: Status: Acute (5) Acute kidney injury: Status: Acute (6) Dehydration: Status: Acute (7) Hyponatremia: Status: Acute (8) HTN (hypertension): Status: Chronic Qualifiers: Hypertension type: primary hypertension Qualified Code(s): I10 - Essential (primary) hypertension (9) DM II (diabetes mellitus, type II), controlled: Status: Chronic Qualifiers: Diabetes mellitus predatory animal exterminator insulin use: with predatory animal exterminator use Diabetes mellitus complication status: with hyperglycemia Qualified Code(s): E11.65 - Type 2 diabetes mellitus with hyperglycemia; Z79.4 - intermediate (current) use of insulin (10) GERD (gastroesophageal reflux disease): Status: Chronic Qualifiers: Esophagitis presence: esophagitis presence not specified Qualified Code(s): K21.9 - Gastro-esophageal reflux disease without esophagitis (11) CAD (coronary artery disease): Status: Chronic Qualifiers: Coronary Disease-Associated Artery/Lesion type: [place] artery [place] vs. transplanted heart: [place] heart (12) Dyslipidemia: Status: Chronic
[2023-02-17 05:22] LABS: BASOPHILS # (AUTO) 0.1 X10^3/uL (0.0-0.1); BASOPHILS % (AUTO) 0.8 % (0.2-1.0); EOSINOPHILS % (AUTO) 0.6 % (0.9-2.9); HEMATOCRIT 40.5 % (42.0-54.0); HEMOGLOBIN 13.8 g/dL (13.5-18.0); LYMPHOCYTES % (AUTO) 12.4 % (21.0-51.0); MEAN CORPUSCULAR HEMOGLOBIN 27.2 pg (27.0-34.0); MEAN CORPUSCULAR VOLUME 79.9 fL (80.0-100.0); MEAN PLATELET VOLUME 8.9 fL (7.4-11.0); MONOCYTES # (AUTO) 0.8 x10^3/uL (0.3-0.8); MONOCYTES % (AUTO) 10.8 % (0.0-13.0); NEUTROPHILS # (AUTO) 5.8 x10^3/uL (2.2-4.8); NEUTROPHILS % (AUTO) 75.4 % (42.0-75.0); PLATELET COUNT 274 X10^3/uL (150.0-450.0); RED BLOOD COUNT 5.07 X10^6/uL (4.7-6.0); RED CELL DISTRIBUTION WIDTH 15.1 % (11.6-16.5); WHITE BLOOD COUNT 7.7 X10^3/uL (3.6-10.0)
[2023-02-17 05:44] LABS: ALANINE AMINOTRANSFERASE 52 Units/L (12-78); ALBUMIN 2.7 g/dL (3.4-5.0); ALKALINE PHOSPHATASE 76 Units/L (46-116); AMYLASE 262 Units/L (25-115); ASPARTATE AMINO TRANSFERASE 20 Units/L (15-37); BLOOD UREA NITROGEN 13 mg/dL (7-18); CALCIUM 8.9 mg/dL (8.5-10.1); CARBON DIOXIDE 25.1 mmol/L (21-32); CHLORIDE 103 mmol/L (98-107); COR CA(FOR HYPOALB) 9.9 mg/dL (8.5-10.1); COR NA(FOR HYPERGLY) 138 mmol/L (136-145); GLUCOSE 111 mg/dL (65-99); POTASSIUM 3.3 mmol/L (3.5-5.1); SODIUM 138 mmol/L (136-145); TOTAL PROTEIN 6.5 g/dL (6.4-8.2); eGFR NON BLACK RACES > 60 (>60)
[2023-02-17 05:56] LABS: LIPASE 2239 Units/L (73-393)
[2023-02-17] MEDS ORDERED: MAGNESIUM SULFATE 1 GRAM/100 mL PREMIX 1 G/100 ML BAG IV PRN (06:31)
[2023-02-17] MEDS ORDERED: GLUCOPHAGE ONE ×2 (09:10→19:40)
[2023-02-17] MEDS: GLUCOPHAGE PO SCH ×2 (09:40→20:21)
[2023-02-17] MEDS: PROTONIX INJ 40 MG VIAL IVP SCH (09:40)
[2023-02-17] MEDS: HYZAAR 50/12.5 MG PO SCH (09:41)
[2023-02-17] MEDS: LOPRESSOR TAB 25 MG PO SCH ×2 (09:41→20:20)
[2023-02-17] MEDS: CRESTOR TAB 10 MG PO SCH (09:41)
--- NOTE | 2023-02-17 14:20 | PCM.PROG ---
Progress Note Progress Note for Day of Date of Exam: 02/17/23 Subjective Subjective: 17 Feb 2023 Patient is lying in bed comfortably this morning. He reports he is still eating without having any epigastric pain. However I see that his amylase and lipase have been trended up again but he remains comfortable. He is clinically better so we will continue with his current treatment. Gram stain of the peritoneal fluid showed no organisms and culture of the peritoneal fluid on day 3 has not grown out any organisms. The patient also has hypokalemia and hypomagnesemia this morning. We will continue to replace the electrolytes we have the protocol. Continue current treatment. Saturday, 16 Feb 2023 Patient is lying in bed comfortably this morning. He has no new complaints today. Vital signs stable this morning. Overall his labs look within normal limits for him I do see his calcium is low so we will check a vitamin D level. Repeat routine labs in a.m. IS A 67 YEAR OLD PATIENT OF OURS WITH HX OF CAD, DYSLIPIDEMIA, GERD, HTN, TYPE 2 DIABETES, PROSTATE CANCER, HERNIA REPAIR, CHOLECYSTECTOMY, AND CARDIAC STENTS. HE IS CURRENTLY INPATIENT STATUS FOR TREATMENT OF SMALL BOWEL OBSTRUCTION, ACUTE KIDNEY INJURY, DEHYDRATION, AND HYPONATREMIA. HE IS STATUS POST LAPAROTOMY AND APPENDECTOMY PER . HE REPORTS SLIGHT IMPROVEMENT IN EPIGASTRIC PAIN AND NAUSEA THIS MORNING. HE NO LONGER HAS AN NG TUBE. HE HAS BEEN ON A CLEAR LIQUID DIET, BUT REPORTS VOMITING THIS MORNING. HE ADMITS TO HAVING TWO BOWEL MOVEMENTS WITHIN THE LAST 24 HOURS. ON EXAMINATION, HEART IS REGULAR IN RATE AND RHYTHM. BILATERAL LUNGS ARE NOTED WITH DIMINISHED LUNG SOUNDS THROUGHOUT. ABDOMEN IS SLIGHTLY DISTENDED AND NOTED WITH DIFFUSE TENDERNESS TO PALPATION. ABDOMINAL DRESSING IS DRY AND INTACT. HYPOACTIVE BOWEL SOUNDS NOTED. GOOD MOVEMENT NOTED TO UPPER AND LOWER EXTREMITIES. TRACE EDEMA NOTED TO LOWER EXTREMITIES. HIS VITALS THIS MORNING ARE: 97.6-62-18-97%-165/71. HE IS ON ROOM AIR. LABS WERE OBTAINED. WBC 7.3, RBC 4.66, HGB 12.6, HCT 37.7, PLT COUNT 179, SODIUM 140, POTASSIUM 3.9, CHLORIDE 105, BUN 17, CREATININE 1.07, GLUCOSE 140, CALCIUM 8.2, AST 28, ALT 88, ALK PHOS 63, TOTAL PROTEIN 5.8, ALBUMIN 2.3. PERITONEAL FLUID CULTURES ARE PENDING. HE IS CURRENTLY RECEIVING DILAUDID 1MG IV Q2H PRN, OTBS ACHS, HUMULIN R SLIDING SCALE, ZOFRAN 4MG IV Q6H PRN, PROTONIX 40MG IV DAILY, AND THE POTASSIUM AND MAGNESIUM PROTOCOLS. HIS HOME MEDICATIONS WERE RESUMED. HOME MEDICATIONS INCLUDE THE FOLLOWING: HYZAAR 50/12.5 DAILY, GLUCOPHAGE 1000MG BID, LOPRESSOR 12.5MG BID, CRESTOR 5MG DAILY. , GENERAL SURGEON, CONTINUES TO FOLLOW PATIENT. WE WILL CONTINUE WITH CURRENT PLAN OF CARE TODAY. OTHERWISE, WE WILL FOLLOW UP WITH AM LABS AND KUB AND CONTINUE TO MONITOR. TIME SPENT ON CLINICAL ASSESSMENT, REVIEWING LABS AND IMAGING, DECISION MAKING, AND DOCUMENTATION GREATER THAN 45 MINUTES. Past Medical Family Social History Past Med/Fam/Surg Hx: No changes since H&P Allergies: Allergies aspirin Allergy (Verified 02/06/23 10:43) Sulfa (Sulfonamide Antibiotics) [SULFA] Allergy (Verified 02/06/23 10:43) Review of Systems ROS: No change since H&P Vital Signs and I&O's Vital Signs: Temperature 97.9 F Pulse Rate [Left] 71 Pulse Rate 74 Respiratory Rate 20 Blood Pressure [Left Arm] 168/76 Blood Pressure 126/70 O2 Sat by Pulse Oximetry 98 Intake and Output: Intake & Output 02/15/23 02/16/23 02/17/23 02/18/23 11:59 11:59 11:59 11:59 Intake Total 1575 / 1575 1490 / 1490 1820 / 1820 Balance 1575 / 1575 1490 / 1490 1820 / 1820 Physical Exam Oriented: Normal, Time, Person and Place Eyes: Normal Ear: Normal Nose: Normal Throat: Normal Respiratory: Normal Cardiovascular: Normal : Normal Auscultation: Bowel Sounds: Decreased Tenderness: Normal Skin: Normal Musculoskeletal: Normal Psychiatric: Normal Mood Description: Calm Affect: Normal Speech Pattern: Clear and Appropriate Laboratory and Diagnostics Result Diagrams: 02/17/23 04:45 02/17/23 04:45 Labs: 02/08/23 14:15 Peritoneal Fluid Wound Gram Stain - Final 02/08/23 14:15 Peritoneal Fluid Wound Culture - Final Laboratory WBC 7.7 X10^3/uL (3.6-10.0) 02/17/23 04:45 RBC 5.07 X10^6/uL (4.7-6.0) 02/17/23 04:45 Hgb 13.8 g/dL (13.5-18.0) 02/17/23 04:45 Hct 40.5 % (42.0-54.0) L 02/17/23 04:45 MCV 79.9 fL (80.0-100.0) L 02/17/23 04:45 MCH 27.2 pg (27.0-34.0) 02/17/23 04:45 MCHC 34.0 g/dL (33.0-35.0) 02/17/23 04:45 RDW 15.1 % (11.6-16.5) 02/17/23 04:45 Plt Count 274 X10^3/uL (150.0-450.0) 02/17/23 04:45 Plt Count Comment Adequate (ADEQUATE) 02/13/23 05:20 MPV 8.9 fL (7.4-11.0) 02/17/23 04:45 Neut % (Auto) 75.4 % (42.0-75.0) H 02/17/23 04:45 Lymph % (Auto) 12.4 % (21.0-51.0) L 02/17/23 04:45 [place] % (Auto) 10.8 % (0.0-13.0) 02/17/23 04:45 Eos % (Auto) 0.6 % (0.9-2.9) L 02/17/23 04:45 Baso % (Auto) 0.8 % (0.2-1.0) 02/17/23 04:45 Neut # (Auto) 5.8 x10^3/uL (2.2-4.8) H 02/17/23 04:45 Lymph # (Auto) 1.0 X10^3/uL (1.3-2.9) L 02/17/23 04:45 [place] # (Auto) 0.8 x10^3/uL (0.3-0.8) 02/17/23 04:45 Eos # (Auto) 0.0 x10^3/uL (0.0-0.2) 02/17/23 04:45 Baso # (Auto) 0.1 X10^3/uL (0.0-0.1) 02/17/23 04:45 Absolute Nucleated RBC 0.1 /100WBC 02/17/23 04:45 Total Counted 100 02/13/23 05:20 Neutrophils % (Manual) 50 % (39-76) 02/13/23 05:20 Band Neutrophils % 40 % (0-10) H 02/13/23 05:20 Lymphocytes % (Manual) 7 % (13-43) L 02/13/23 05:20 Monocytes % (Manual) 2 % (4-9) L 02/13/23 05:20 Eosinophils % (Manual) 1 % (0-6) 02/13/23 05:20 Plt Morphology Comment Normal (NORMAL) 02/13/23 05:20 RBC Morphology Normal (NORMAL) 02/13/23 05:20 Sodium 138 mmol/L (136-145) 02/17/23 04:45 Corrected Sodium 138 mmol/L (136-145) 02/17/23 04:45 Potassium 3.3 mmol/L (3.5-5.1) L 02/17/23 04:45 Chloride 103 mmol/L (98-107) 02/17/23 04:45 Carbon Dioxide 25.1 mmol/L (21-32) 02/17/23 04:45 BUN 13 mg/dL (7-18) 02/17/23 04:45 Creatinine 1.00 mg/dL (0.70-1.30) 02/17/23 04:45 Est GFR (MDRD) Af Amer > 60 (>60) 02/17/23 04:45 Est GFR (MDRD) Non-Af > 60 (>60) 02/17/23 04:45 Glucose 111 mg/dL (65-99) H 02/17/23 04:45 POC Glucose (mg/dL) 127 mg/dL (65-99) H 02/17/23 12:34 Calcium 8.9 mg/dL (8.5-10.1) 02/17/23 04:45 Corrected Calcium 9.9 mg/dL (8.5-10.1) 02/17/23 04:45 Magnesium 1.8 mg/dL (2.0-2.9) L 02/17/23 04:45 Total Bilirubin 0.60 mg/dL (0.2-1.0) 02/17/23 04:45 AST 20 Units/L (15-37) 02/17/23 04:45 ALT 52 Units/L (12-78) 02/17/23 04:45 Alkaline Phosphatase 76 Units/L (46-116) 02/17/23 04:45 Troponin I High Sens 12.1 ng/L (4.0-60.0) 02/06/23 10:52 Total Protein 6.5 g/dL (6.4-8.2) 02/17/23 04:45 Albumin 2.7 g/dL (3.4-5.0) L 02/17/23 04:45 Globulin 3.8 g/dL (2.5-4.5) 02/17/23 04:45 Albumin/Globulin Ratio 0.7 Ratio (1.1-2.1) L 02/17/23 04:45 Amylase 262 Units/L (25-115) H 02/17/23 04:45 Lipase 2239 Units/L (73-393) H 02/17/23 04:45 Specimen Type Clean catch urine 02/06/23 12:10 Urine Color Dark yellow (YELLOW) 02/06/23 12:10 Urine Appearance Clear (CLEAR) 02/06/23 12:10 Urine pH 5.0 (5.0 - 8.0) 02/06/23 12:10 Ur Specific [place] 1.025 (1.000-1.030) 02/06/23 12:10 Urine Protein 2+ (NEGATIVE) 02/06/23 12:10 Urine Glucose (UA) 1+ (NEGATIVE) 02/06/23 12:10 Urine Ketones Negative (NEGATIVE) 02/06/23 12:10 Urine Blood 1+ (NEGATIVE) 02/06/23 12:10 Urine Nitrite Negative (NEGATIVE) 02/06/23 12:10 Urine Bilirubin 1+ (NEGATIVE) 02/06/23 12:10 Urine Urobilinogen Normal (NORMAL) 02/06/23 12:10 Ur Leukocyte Esterase Negative (NEGATIVE) 02/06/23 12:10 Urine RBC 0-2 /HPF (0-3) 02/06/23 12:10 Urine WBC 0-2 /HPF (0-5) 02/06/23 12:10 Ur Squamous Epith Cells Rare /HPF (NEGATIVE) 02/06/23 12:10 Urine Bacteria Trace /HPF (NEGATIVE) 02/06/23 12:10 Hyaline Casts Few /LPF (NEGATIVE) 02/06/23 12:10 Urine Mucus Few /HPF (NEGATIVE) 02/06/23 12:10 Ur Culture Indicated? No/not indicated 02/06/23 12:10 Tissue Pathology See comment. 02/08/23 14:30 Plan (1) Small bowel obstruction: Status: Acute Plan: DILAUDID 1MG IV Q2H PRN, OTBS ACHS, HUMULIN R SLIDING SCALE, ZOFRAN 4MG IV Q6H PRN, PROTONIX 40MG IV DAILY, AND THE POTASSIUM AND MAGNESIUM PROTOCOLS. CONTINUE HOME MEDS (2) Acute pancreatitis: Status: Acute Qualifiers: Acute pancreatitis complication: unspecified Pancreatitis type: unspecified pancreatitis type Qualified Code(s): K85.90 - Acute pancreatitis without necrosis or infection, unspecified Plan: Check daily amylase and lipase. (3) Status post appendectomy: Status: Acute (4) Status post laparotomy: Status: Acute (5) Acute kidney injury: Status: Acute (6) Dehydration: Status: Acute (7) Hyponatremia: Status: Resolved (8) HTN (hypertension): Status: Chronic Qualifiers: Hypertension type: primary hypertension Qualified Code(s): I10 - Essential (primary) hypertension (9) DM II (diabetes mellitus, type II), controlled: Status: Chronic Qualifiers: Diabetes mellitus custodial insulin use: with custodial use Diabetes mellitus complication status: with hyperglycemia Qualified Code(s): E11.65 - Type 2 diabetes mellitus with hyperglycemia; Z79.4 - superintendent container terminal (current) use of insulin (10) GERD (gastroesophageal reflux disease): Status: Chronic Qualifiers: Esophagitis presence: esophagitis presence not specified Qualified Code(s): K21.9 - Gastro-esophageal reflux disease without esophagitis (11) CAD (coronary artery disease): Status: Chronic Qualifiers: Coronary Disease-Associated Artery/Lesion type: [place] artery [place] vs. transplanted heart: [place] heart (12) Dyslipidemia: Status: Chronic (13) Hypokalemia: Status: Acute Plan: Replace potassium with potassium/magnesium replacement protocol. (14) Hypomagnesemia: Status: Acute Plan: Replace magnesium with potassium/magnesium replacement protocol.
[2023-02-18 05:56] LABS: BASOPHILS % (AUTO) 0.5 % (0.2-1.0); EOSINOPHILS # (AUTO) 0.1 x10^3/uL (0.0-0.2); EOSINOPHILS % (AUTO) 0.6 % (0.9-2.9); HEMATOCRIT 40.4 % (42.0-54.0); HEMOGLOBIN 13.5 g/dL (13.5-18.0); MEAN CORPUSCULAR HGB CONC 33.3 g/dL (33.0-35.0); MEAN CORPUSCULAR VOLUME 80.9 fL (80.0-100.0); MEAN PLATELET VOLUME 8.6 fL (7.4-11.0); MONOCYTES % (AUTO) 10.6 % (0.0-13.0); NEUTROPHILS % (AUTO) 77.3 % (42.0-75.0); PLATELET COUNT 277 X10^3/uL (150.0-450.0); RED CELL DISTRIBUTION WIDTH 15.3 % (11.6-16.5); WHITE BLOOD COUNT 9.1 X10^3/uL (3.6-10.0)
[2023-02-18 06:22] LABS: ALANINE AMINOTRANSFERASE 45 Units/L (12-78); ALBUMIN 2.8 g/dL (3.4-5.0); ALKALINE PHOSPHATASE 78 Units/L (46-116); AMYLASE 254 Units/L (25-115); ASPARTATE AMINO TRANSFERASE 18 Units/L (15-37); BLOOD UREA NITROGEN 11 mg/dL (7-18); CALCIUM 8.8 mg/dL (8.5-10.1); CARBON DIOXIDE 26.4 mmol/L (21-32); CHLORIDE 103 mmol/L (98-107); COR CA(FOR HYPOALB) 9.8 mg/dL (8.5-10.1); COR NA(FOR HYPERGLY) 138 mmol/L (136-145); CREATININE 0.98 mg/dL (0.70-1.30); GLUCOSE 126 mg/dL (65-99); SODIUM 137 mmol/L (136-145); TOTAL PROTEIN 6.8 g/dL (6.4-8.2); eGFR NON BLACK RACES > 60 (>60)
[2023-02-18 06:41] LABS: LIPASE 1908 Units/L (73-393)
--- NOTE | 2023-02-18 07:11 | RAD ---
HISTORYSmall-bowel [id number]/12/2023 .br.br.br.br nonspecific but nonobstructive bowel gas pattern with multiple air-filled loops of small bowel within the central abdomen that appear essentially unchanged when compared to prior examinations. Distal colonic gas is noted to be present. Skin danette overlying the abdomen are observed. Findings would be consistent with abdominal ileus. Continued follow-up to exclude obstruction will be needed. No pathological soft tissue mass or calcification can be observed. The bony structures are grossly intact.IMPRESSIONMultiple air-filled loops of small bowel with distal colonic gas detailed above.Electronically signed by: AKASH DE LA CRUZ (February 18, 2023 07:09:57)
[2023-02-18] MEDS ORDERED: GLUCOPHAGE ONE (08:22)
[2023-02-18] MEDS ORDERED: LOVENOX INJ 40 MG SYR SC SCH (09:00)
[2023-02-18] MEDS: HYZAAR 50/12.5 MG PO SCH (09:18)
[2023-02-18] MEDS: CRESTOR TAB 10 MG PO SCH (09:18)
[2023-02-18] MEDS: GLUCOPHAGE PO SCH (09:18)
[2023-02-18] MEDS: LOPRESSOR TAB 25 MG PO SCH (09:18)
[2023-02-18] MEDS: PROTONIX INJ 40 MG VIAL IVP SCH (09:19)
[2023-02-18 10:56] VITALS: BP 155/73
== END 2023-02-18 11:30 | disposition home or self-care (01) | DRG 424 ==
LOC: ER 10:32 → MED/SURG 14:06
PROVIDERS: ADMIT Internal Medicine; ATTEND Internal Medicine
DX: R60.0 Localized edema; K21.9 Gastro-esophageal reflux disease without esophagitis; I25.10 Atherosclerotic heart disease of native coronary artery without angina pectoris; E11.65 Type 2 diabetes mellitus with hyperglycemia; E87.1 Hypo-osmolality and hyponatremia; R53.1 Weakness; E87.6 Hypokalemia; K85.80 Other acute pancreatitis without necrosis or infection; R26.89 Other abnormalities of gait and mobility; K56.51 Intestinal adhesions [bands], with partial obstruction; R10.84 Generalized abdominal pain; N17.8 Other acute kidney failure; Z85.46 Personal history of malignant neoplasm of prostate; E83.42 Hypomagnesemia; E78.2 Mixed hyperlipidemia; K57.30 Diverticulosis of large intestine without perforation or abscess without bleeding; E86.0 Dehydration; Z79.4 Long term (current) use of insulin; I10 Essential (primary) hypertension; Z79.01 Long term (current) use of anticoagulants; Z90.49 Acquired absence of other specified parts of digestive tract